=== PATIENT | female | born 1965 | race Caucasian/White ===

== ENCOUNTER 2018-08-01 16:56 | Outpatient (REF) | payer OTHER, SELFPAY ==
--- NOTE | 2018-08-01 16:45 | PAPFT_PTH ---
PATIENT: Kailee Anaya LOC: [facility] U#:[id number] AGE/SX: 52/F ROOM: RE08/01/[address]: Dmitry Guerra MD : 1965 BED: DIS: 08/01/2018 SPEC #: [id number] RECD: 08/04/18 13:18 STATUS: ADDY REQ #: [id number] DEBRA: 08/01/18 16:[address]: Dmitry Guerra DEPT: [facility] Cytology RECD BY: Dali Haynes Tissues: 1 - CX/ENDOCX FOR PAP SMEARS Procedures: PAP THIN PREP/UVM Screening HPV DNA PROBE Comments: [id number]
== END 2018-08-01 17:16 ==
LOC: LBN 16:56
PROVIDERS: PCP Family Medicine; Visit Provider Family Medicine
DX: Z12.4 Encounter for screening for malignant neoplasm of cervix (principal); Z11.51 Encounter for screening for human papillomavirus (HPV)
CPT/HCPCS: 88142; 87624

== ENCOUNTER 2018-08-04 15:11 | Outpatient (CLI) | payer OTHER, SELFPAY ==
--- NOTE | 2018-08-04 16:41 | DI.MAMMO_ITS ---
SYMPTOMS/DIAGNOSIS: SCREENING, WELL ADULT BILATERAL SCREENING MAMMOGRAM: Mammograms were interpreted according to the usual protocol including computer analysis with CAD system, tomosynthesis and C view imaging. Comparison is made with exams from 2012 through 2016. The breasts are composed of scattered fibroglandular densities, breast density category B. No suspicious masses or suspicious microcalcifications are seen. There has been no significant change. IMPRESSION: Category 1B, negative mammogram. Yearly screening mammography is recommended. [facility] ASSESSMENT OF FINDINGS: Negative. Category 1. Patient will receive a letter notifying them of these results. BI-RADS category B. There are scattered areas of fibroglandular density.
== END 2018-08-04 15:31 ==
PROVIDERS: PCP Family Medicine; Visit Provider Family Medicine
DX: Z12.31 Encounter for screening mammogram for malignant neoplasm of breast (principal)
CPT/HCPCS: 77063; 77067

== ENCOUNTER 2018-08-11 15:42 | Observation (INO) | payer OTHER, SELFPAY ==
[2018-08-11] VITALS (34 sets, daily range): BP systolic 65–162; BP diastolic 31–94; PULSE 59–91; RESP 12–32; TEMP 36.3–37.6; O2SAT 94–100
[2018-08-11] MEDS: Lactated Ringers 1,000 ML 80 ML IV ×3 (09:41→14:09)
--- NOTE | 2018-08-11 12:33 | W.PM.DSUDISC ---
Discharge Plan Disposition Patient Disposition: HOME Condition: Good Discharge Details Reason For Visit: (L) TROCHANTERIC BURSITIS Attending Provider: Eric Melchor Primary Care Provider: Dmitry Guerra Home Meds and New Rx's Prescriptions: New ibuprofen 800 mg tablet 800 mg PO TID Qty: 30 RF: 0 oxycodone-acetaminophen [Percocet] 5-325 mg tablet 1 tab PO Q6H PRN (Reason: pain) Qty: 20 RF: 0 Continue duloxetine 30 mg capsule,delayed release(DR/EC) 30 mg PO DAILY Qty: 90 RF: 3 metoprolol succinate 25 mg tablet extended release 24 hr 25 mg PO DAILY Qty: 90 RF: 3 omeprazole 40 mg capsule,delayed release(DR/EC) 40 mg PO DAILY Qty: 90 RF: 3 clotrimazole-betamethasone 1-0.05 % cream 1 applic TP BID Qty: 45 RF: 1 Discontinued ibuprofen 800 mg tablet 800 mg PO TID PRN RF: 0 Discharge Instructions Additional Instructions: Crutches to walk. WB as tolerated to L leg. Walk as much as your discomfort allows. Ice to lateral L hip continuously until discharge. At home, apply ice to incision 4 times/day for 1 hour each time. May remove dressings to shower after 72 hours. After showering, pat adamaris dry and cover with light gauze dressing so the adamaris don't catch on pants. Follow up in 's office in 2 weeks. Take ibuprofen 3 times/day as prescribed. Take oxycodone for breakthrough pain. Equipment/Supplies: Partial Weight Bearing Crutches Activity:: Activity as Tolerated Remove Dressings/Wound Care:: 72 hours Shower/Bathe:: 72 hours Diet:: regular Discharge Orders Discharge Orders: Discharge Order (Routine); Ordered 08/11/18 Ordered By: Eric Melchor DS: Diagnosis Discharge Diagnosis (1) Trochanteric bursitis, left hip: Status: Acute
[2018-08-11] MEDS: fentaNYL 100 MCG/2 ML VIAL IVP (13:42)
[2018-08-11] MEDS: HYDROmorphone 2 MG/ML VIAL IVP (13:51)
--- NOTE | 2018-08-11 14:18 | DI.RAD_ITS ---
SYMPTOMS/DIAGNOSIS: CHEST PAIN, SHORTNESS OF BREATH PORTABLE AP CHEST: Comparison 03/27/16. The heart size is mildly enlarged. The pulmonary vasculature is within normal limits. No consolidating infiltrates, effusions or pneumothoraces are identified. Degenerative changes are seen in the spine. IMPRESSION: No acute pulmonary process.
[2018-08-11 14:48] LABS: Troponin I < 0.02 ng/mL (0.00-0.06)
[2018-08-11 14:50] LABS: NT-proBNP 74 pg/mL
--- NOTE | 2018-08-11 15:39 | ROE_ITS ---
DATE OF PROCEDURE: August 11, 2018 PREOPERATIVE DIAGNOSIS: Chronic left trochanteric bursitis. POSTOPERATIVE DIAGNOSIS: Same. PROCEDURE: Tenotomy of the iliotibial band on the left and excision of trochanteric bursa on the lef t. ANESTHESIA: General. SURGEON: Eric Melchor M.D. PAD CUTTER: Halle Pacheco INDICATIONS: This is a 52-year-old white female with chronic left trochanteric bursitis for over mitch e months. This has not responded to the full gambit of conservative treatment including ice, anti-in flammatory medications and multiple steroid injections. She was also given a course of oral steroids without benefit. Because of the continued pain unresponsive to conservative treatment, surgery was recommended to alleviate the pain. Excision of the trochanteric bursa and tenotomy of the iliotibial band was advised to alleviate her pain. The risks and complications of the procedure were explained to the patient in detail preoperatively. PROCEDURE: The patient was taken to the operating room on 08/11/18. She was placed supine on the ope rating table and a general anesthetic was administered. She was turned to the left lateral position on the operating table and this position was maintained with a pneumatic beanbag. The left hip was t hen prepped and draped free in the usual sterile fashion. A longitudinal incision was made approximately 5 to 6 inches in length beginning just proximal to the tip of the greater trochanter. The incision was carried down to the subcu to the iliotibial band. The iliotibial band was longitudinally incised in the midline. I then palpated for the part of the I T band that was the tightest against the greater trochanter with the hip adducted. Once I determined by digital palpation the point where the tendon was impinging on the trochanter, I performed a trans verse tenotomy. At this point the trochanteric bursa was clearly visualized and the hypertrophic bur sa was excised with sharp dissection. The wound was irrigated with saline solution and hemostasis wa s obtained with electrocautery. The wound margins were then infiltrated with 0.5% Marcaine with an e pinephrine solution. I approximated the longitudinal incision in the iliotibial band only using inte rrupted [id number]-[id number] sutures of #1 Vicryl suture material. The transverse tenotomy was left open. The subcu was approximated with interrupted 2-0 Vicryl sutures. The skin edges were approximated w ith skin adamaris. Sterile dressings were applied of Xeroform gauze, sterile gauze 4x4's, ABD pads an d then taped with foam elastic tape for a light pressure dressing. The patient tolerated the procedu re well. Her anesthesia was reversed without complication. Blood loss was 25 cc's. She was dischar ged to the recovery room in good condition. She was slow coming out of anesthesia and was experiencing some trouble with breathing. This was tho roughly evaluated by the nurse gray mixing operator and no obvious reason was determined. The studies all wer e normal. The patient's breathing improved and it was felt that she would be safe to go home. She was later discharged home from the Day Surgery Unit when fully recovered. She was given instruct ions to use crutches to walk, weight-bearing as tolerated to the left leg. She is to keep the dressi ngs dry and intact for 72 hours. After 72 hours she may remove her dressings, shower and get her inc ision wet. After showering she is to pat the adamaris dry and to cover the adamaris with a light gauze dressing so they don't rub on her pants. She was given a prescription for pain of Percocet 5/325 on e tablet every six hours as needed for breakthrough pain, and a prescription for pain and inflammatio n of ibuprofen 800 mg p.o. t.i.d. for ten days. She will follow-up in my office in two weeks.
--- NOTE | 2018-08-11 16:13 | PDOC.ANES ---
This patient had General anesthesia today and throughout intraoperative course required large amounts of vasopressor therapy with minimal effect. Pt. was received by PACU at 1314 and was awake and conversive. Despite this, her hypotension remained. She was given a 80mcg IV phenylephrine bolus at 1312 and 1317 with some response and then started on a phenylephrine drip with rate mostly between 40-80mcg/min. She had received adequate crystalloid at this point, despite continued pressor requirement. She also complained of SOB/Air hunger with increased RR into high 20's, despite SpO2 100%. Her lung sounds were clear bilaterally without stridor and no increased work of breathing noted, other than rate. At around 1330, she complained of chest pressure 5/10 radiating to right arm without diaphoresis or nausea, but did continue to feel SOB.ECG, Troponin, BNP, and AP Chest film ordered. Lab results were normal, Chest film results normal with mildly enlarged heart. At the time of the results (around 1415), the chest pressure complaint and SOB did resolve per patient. At this time, patient did share that when she is cleaning at home, she must take multiple breaks since she just feels awful, although at this time she does deny any specific symptoms with these episodes. Discussed with surgeon who agrees pt. will be admitted for observation on telemetry and if next troponin at 1815 is negative, then she will be discharged home. Patient advised if negative, to follow up with primary care and discuss intraoperative hypotension, vague symptoms while doing housework, as well as episode of chest pain post operatively in order to assess need for further cardiovascular workup. Patient understand and agrees to see PCP in near future (less than 30 days) and call 911 if chest pressure returns. At 1628, patient has been off all vasopressor therapy with no complaints and well appearing and expresses her wish to go home after negative troponin result at 1815.
--- NOTE | 2018-08-11 16:18 | ANES_ITS ---
This patient had General anesthesia today and throughout intraoperative course required large amounts of vasopressor therapy with minimal effect. Pt. was received by PACU at 1314 and was awake and conversive. Despite this, her hypotension remained. She was given a 80mcg IV phenylephrine bolus at 1312 and 1317 with some response and then started on a phenylephrine drip with rate mostly between 40-80mcg/min. She had received adequate crystalloid at this point , despite continued pressor requirement. She also complained of SOB/Air hunger with increased RR into high 20's, despite SpO2 100%. Her lung sounds were clear bilaterally without stridor and no increased work of breathing noted, other than rate. At around 1330, she complained of chest pressure 5/10 radiating to right arm without diaphoresis or nausea, but did continue to feel SOB.ECG, Troponin, BNP, and AP Chest film ordered. Lab results were normal, Chest film results normal with mildly enlarged heart. At the time of the results (around 1415), the chest pressure complaint and SOB did resolve per patient. At this time, patient did share that when she is cleaning at home, she must take multiple breaks since she just feels awful, although at this time she does deny any specific symptoms with these episodes. Discussed with surgeon who agrees pt. will be admitted for observation on telemetry and if next troponin at 1815 is negative, then she will be discharged home. Patient advised if negative, to follow up with primary care and discuss intraoperative hypotension , vague symptoms while doing housework, as well as episode of chest pain post operatively in order to assess need for further cardiovascular workup. Patient understand and agrees to see PCP in near future (less than 30 days) and call 911 if chest pressure returns. At 1628, patient has been off all vasopressor therapy with no complaints and well appearing and expresses her wish to go home after negative troponin result at 1815.
[2018-08-11 18:55] LABS: Troponin I < 0.02 ng/mL (0.00-0.06)
== END 2018-08-11 19:30 | disposition home or self-care (01) ==
LOC: ICU 17:08
PROVIDERS: Nurse Anesthetist, Certified Registered; Admitting Provider Orthopaedic Surgery; PCP Family Medicine; Visit Provider Orthopaedic Surgery
PROC: 0MTM0ZZ Resection of Left Hip Bursa and Ligament, Open Approach (ICD-10-PCS; CPT 27062; principal; 2018-08-11 10:30)
PROC: 0MTM0ZZ Resection of Left Hip Bursa and Ligament, Open Approach (ICD-10-PCS; CPT 27062; 2018-08-11 10:30)
DX: M70.62 Trochanteric bursitis, left hip (principal); I95.81 Postprocedural hypotension; R06.02 Shortness of breath; R07.89 Other chest pain
CPT/HCPCS: 27062; 27305; 36415; 71045; 83880; 84484; 93005; 93010; G0378; J0131; J0690; J1100; J1885; J2250; J2405; J3010

== ENCOUNTER 2018-09-09 13:57 | Outpatient (CLI) | payer OTHER, SELFPAY ==
[2018-09-09 15:29] LABS: NT-proBNP 204 pg/mL
== END 2018-09-09 14:17 ==
PROVIDERS: PCP Family Medicine; Visit Provider Family Medicine
DX: R06.02 Shortness of breath (principal)
CPT/HCPCS: 36415; 83880

== ENCOUNTER 2018-09-17 01:25 | Outpatient (CLI) | payer OTHER, SELFPAY ==
--- NOTE | 2018-09-17 07:40 | MERGE_ITS ---
*[facility]* *[facility]* [address] [place] [address] Date of study: 09/17/2018 Transthoracic Echocardiography M-mode, complete 2D, complete spectral Doppler, and color Doppler *STUDY CONCLUSIONS* Summary: 1. Left ventricle: The cavity size was normal. Wall thickness was normal. Systolic function was normal. The estimated ejection fraction was 60-65%. Wall motion was normal; there were no regional wall motion abnormalities. Diastolic parameters were normal. 2. Right ventricle: The cavity size was normal. Wall thickness was normal. Systolic function was normal. The tricuspid jet envelope definition is inadequate for estimation of RV systolic pressure. There were no indirect findings (abnormal RV volume or geometry, altered pulmonary flow velocity profile, or leftward septal displacement) which would suggest moderate or severe pulmonary hypertension. *PATIENT PRESENTATION* Height: 160cm ((63in) ) S/D Pressure: 120 / 65 Weight: 98.4kg ((216.5lb) ) BSA: 2.14m^2 Test start time: 07:50 AM. Test stop time: 08:40 AM. PERFORMING Unknown ORDERING Dmitry Guerra REFERRING Dmitry Guerra PERFORMING [facility] CRITICAL CARE CLINICAL NURSE SPECIALIST RT Hitesh Hernandez)(CLEM) ASHWIN *PROCEDURE DATA* Procedure information: The patient was identified by two identifiers. This study was interpreted by [facility]. Pertinent images and digital data are archived for permanent storage and are available for subsequent review. No prior study was available for comparison. Study status: Routine. Transthoracic echocardiography. M-mode, complete 2D, complete spectral Doppler, and color Doppler. A Transthoracic Echocardiogram was performed. Scanning was performed from the parasternal, apical, subcostal, and suprasternal notch acoustic windows. Images were obtained using an [id number] cardiac ultrasound machine. Study completion: The patient tolerated the procedure well. There were no complications. History: PMH: SOB weight gain. *CARDIAC ANATOMY* Left ventricle: The cavity size was normal. Wall thickness was normal. Systolic function was normal. The estimated ejection fraction was 60-65%. Wall motion was normal; there were no regional wall motion abnormalities. Diastolic parameters were normal. Aortic valve: Trileaflet; normal thickness leaflets. Mobility was not restricted. Doppler: Transvalvular velocity was within the normal range. There was no stenosis. There was trivial regurgitation. VTI ratio of LVOT to aortic valve: 0.71. Valve area (VTI): 1.9cm^2. Indexed valve area (VTI): 0.9cm^2/m^2. Peak velocity ratio of LVOT to aortic valve: 0.6. Valve area (Vmax): 1.6cm^2. Indexed valve area (Vmax): 0.8cm^2/m^2. Mean velocity ratio of LVOT to aortic valve: 0.65. Valve area (Vmean): 1.7cm^2. Indexed valve area (Vmean): 0.8cm^2/m^2. Mean gradient (S): 9.2mm Hg. Peak gradient (S): 18.4mm Hg. Aorta: Aortic root: The aortic root was normal in size. Ascending aorta: The ascending aorta was normal in size. Mitral valve: Structurally normal valve. Mobility was not restricted. Doppler: Transvalvular velocity was within the normal range. There was no evidence for stenosis. There was trivial regurgitation. Valve area by pressure half-time: 3.7cm^2. Indexed valve area by pressure half-time: 1.7cm^2/m^2. Peak gradient (D): 4.4mm Hg. Left atrium: The atrium was normal in size. Right ventricle: The cavity size was normal. Wall thickness was normal. Systolic function was normal. The tricuspid jet envelope definition is inadequate for estimation of RV systolic pressure. There were no indirect findings (abnormal RV volume or geometry, altered pulmonary flow velocity profile, or leftward septal displacement) which would suggest moderate or severe pulmonary hypertension. Pulmonic valve: Doppler: Transvalvular velocity was within the normal range. There was no evidence for stenosis. There was no significant regurgitation. Peak gradient (S): 8mm Hg. Tricuspid valve: Structurally normal valve. Doppler: Transvalvular velocity was within the normal range. There was no evidence for stenosis. There was no significant regurgitation. Pulmonary artery: Systolic pressure could not be accurately estimated. Right atrium: The atrium was normal in size. Pericardium: There was no pericardial effusion. Systemic veins: Inferior vena cava: Well visualized. The vessel was patent and normal in size. The respirophasic diameter changes were in the normal range (greater than or equal to 50%). Baseline ECG: Normal sinus rhythm. Measurements Left ventricle Value Reference LV ID, ED, PLAX 4.0 cm 3.5 - 6.0 LV ID, ES, PLAX 2.7 cm 2.1 - 4.0 LV PW thickness, ED, PLAX 1.0 cm LV end-diastolic volume, 1-p A2C 82 ml LV ejection fraction, 1-p A2C 61 % LV end-diastolic volume, 1-p A4C 72 ml LV ejection fraction, 1-p A4C 57 % LV e', lateral 0.133 m/sec LV E/e', lateral 8 LV e', medial 0.105 m/sec LV E/e', medial 10 LV e', average 0.119 m/sec LV E/e', average 9 Ventricular septum Value Reference IVS thickness, ED, PLAX 1.1 cm LVOT Value Reference LVOT ID, A-P 1.8 cm LVOT area 2.7 cm^2 LVOT peak velocity, S 1.3 m/sec LVOT mean velocity, S 0.93 m/sec LVOT VTI, S 28.2 cm LVOT peak gradient, S 6.7 mm Hg LVOT mean gradient, S 3.9 mm Hg Stroke volume (SV), LVOT DP 75 ml Stroke index (SV/bsa), LVOT DP 35 ml/m^2 Aortic valve Value Reference Aortic valve peak velocity, S 2.1 m/sec Aortic valve mean velocity, S 1.43 m/sec Aortic valve VTI, S 40.0 cm Aortic mean gradient, S 9.2 mm Hg Aortic peak gradient, S 18.4 mm Hg VTI ratio, LVOT/AV 0.71 Aortic valve area, VTI 1.9 cm^2 Velocity ratio, peak, LVOT/AV 0.6 Aortic valve area, peak velocity 1.6 cm^2 Velocity ratio, mean, LVOT/AV 0.65 Aortic valve area, mean velocity 1.7 cm^2 Aortic valve area/bsa, mean velocity 0.8 cm^2/m^2 Aorta Value Reference Aortic root ID, ED 2.4 cm Ascending aorta ID, A-P, S 2.9 cm RVOT Value Reference RVOT VTI, S 16.4 cm Left atrium Value Reference LA ID, A-P, ES 3.1 cm LA ID/bsa, A-P 1.5 cm/m^2 <=2.2 LA area, ES, A4C 16.3 cm^2 8.8 - 23.4 LA area, ES, A2C 15 cm^2 LA volume/bsa, ES, 1-p A4C 21 ml/m^2 LA volume, ES, 2-p 41 ml LA volume/bsa, ES, 2-p 19 ml/m^2 LA/aortic root ratio 1.29 Mitral valve Value Reference Mitral E-wave peak velocity 1.05 m/sec Mitral A-wave peak velocity 0.87 m/sec Mitral deceleration time 208 ms 150 - 230 Mitral pressure half-time 60 ms Mitral peak gradient, D 4.4 mm Hg Mitral E/A ratio, peak 1.2 Mitral valve area, PHT, DP 3.7 cm^2 Pulmonary veins Value Reference Pulmonary vein peak velocity, S 0.55 m/sec Pulmonary vein peak velocity, D 0.4 m/sec Pulmonary vein velocity ratio, peak, 1.36 S/D Pulmonary vein A-wave reversal peak 0.31 m/sec velocity Tricuspid valve Value Reference Tricuspid regurg peak velocity 2.9 m/sec Tricuspid peak RV-RA gradient 33.7 mm Hg Right atrium Value Reference RA area, ES, A4C 12.3 cm^2 8.3 - 19.5 Pulmonic valve Value Reference Pulmonic peak gradient, S 8 mm Hg Legend: (L) and (H) kalpesh values outside specified reference range. I have personally reviewed the images and have reviewed and edited the reported findings. Electronically signed by Esvin Frye 09/17/2018 13:05
== END 2018-09-17 01:45 ==
PROVIDERS: PCP Family Medicine; Visit Provider Family Medicine
DX: R06.02 Shortness of breath (principal); R63.5 Abnormal weight gain
CPT/HCPCS: 93306

== ENCOUNTER 2018-09-24 15:44 | Outpatient (REF) | payer OTHER, SELFPAY ==
--- NOTE | 2018-09-24 14:30 | SKI_PTH ---
PATIENT: Kailee Anaya LOC: [facility] U#:[id number] AGE/SX: 52/F ROOM: RE09/24/[address]: Dmitry Guerra MD : 1965 BED: DIS: 09/24/2018 SPEC #: [id number] RECD: 09/25/18 12:30 STATUS: ADDY REQ #: [id number] DEBRA: 09/24/18 14:[address]: Dmitry Guerra DEPT: Surgical Specimen RECD BY: Dali Haynes Tissues: 1 - SKIN BIOPSY(SHAVE/PUNCH) Procedures: SKIN LEVEL 4 Comments: [id number]
== END 2018-09-24 16:04 ==
LOC: LBN 15:44
PROVIDERS: PCP Family Medicine; Visit Provider Family Medicine
DX: L82.1 Other seborrheic keratosis (principal)
CPT/HCPCS: 88305

== ENCOUNTER 2018-10-06 00:17 | Outpatient (CLI) | payer OTHER, SELFPAY ==
--- NOTE | 2018-10-06 06:46 | MERGEMPI_ITS ---
*[facility]* *[facility]* [address] [place] [address] Myocardial Perfusion Imaging - SPECT Mesfin protocol Date of study: 10/06/2018 *PATIENT PRESENTATION* Height: 157.5cm (62in) Blood Pressure: Weight: 99.1kg (218lb) BSA: 2.14m^2 Referring physician: Dominguez Pena MD Ordering physician: Dmitry Guerra Impressions: Normal perfusion by Tc99m Sestamibi Imaging. Summary: 1. Myocardial perfusion imaging: No myocardial perfusion defects noted. 2. The calculated left ventricular ejection fraction after stress: 80%. No left ventricular regional motion abnormality. Indication: 786.05. History: REASON FOR VISIT: DYSPNEA ON EXERTION. 1 EPISODE OF CHEST PAIN IN 2017 AFTER WAKING UP FROM SURGERY. NO CHEST PAINS SINCE. Risk factors: Family history of coronary artery disease. Hypertension. Obesity. Dyslipidemia. Cholesterol: 221mg/dl. HDL: 62mg/dl. LDL: 136mg/dl. Triglycerides: 132mg/dl. ALLERGIES: HYDROCODONE. CODEINE. MEDICATIONS: OMEPRAZOLE 40 MG DAILY. METOPROLOL SUCCINATE ER 50 MG DAILY. IBUPROFEN 800 MG TID. DULOXETINE 30 MG DAILY. CLOTRIMAZOLE-BETAMETHASONE TOPICAL CREAM BID. Imaging Technique: Protocol: Mesfin protocol. Acquisition: Gated SPECT; 1 day - rest/stress. The patient was imaged in the supine position. Attenuation correction used. Isotope administration: - Rest. Tc[99m]-sestamibi. Dose: 10.3mCi. Injection time: 08:15 AM. Injection to stress time: 00:45. - Stress. Tc[99m]-sestamibi. Dose: 32.2mCi. Injection time: 09:55 AM. 1-2 min before end of exercise Baseline ECG: SINUS RHYTHM. HR 79 BPM. T-WAVES FLAT IN V3, V4, V5 & V6. Stress protocol: + +---+ + !Stage !HR !BP (mmHg) ! + +---+ + !Baseline supine !79 !148/72 (97) ! + +---+ + !Baseline standing !101!142/84 (103)! + +---+ + !Stage I; 1.7mph, 10degrees; 3 min!167!202/98 (133)! + +---+ + !Peak stress !169! ! + +---+ + !Recovery; 3 min !101!160/82 (108)! + +---+ + !Recovery; 6 min !102!134/86 (102)! + +---+ + !Recovery; 9 min !103!122/82 (95) ! + +---+ + !Recovery; 12 min !99 ! ! + +---+ + * Stress results: Maximal heart rate during stress was 169bpm (101% of maximal predicted heart rate). The maximal predicted heart rate was 168bpm. The rate-pressure product for the peak heart rate and blood pressure was 00926wo Hg/min. Stress ECG: TREADMILL EXERCISE PORTION OF STRESS TEST ENDED IN 2 MINUTES & 42 SECONDS BECAUSE OF PATIENT FATIGUE NORMAL HEART RATE AND BLOOD PRESSURE RESPONSE TO EXERCISE MAX HR = 169 % OF TARGET = 100 NO ECTOPY APPROXIMATE METS ACHIEVED = 4.64 5/10 CHEST TIGHTNESS DURING PEAK EXERCISE, LASTING A FEW SECONDS, SUBSIDED WHEN TREADMILL STOPPED. NO SIGNIFICANT ST SEGMENT CHANGES MODERATELY DIMINISHED FUNCTIONAL CAPACITY FOR EXERCISE. Myocardial perfusion: Imaging information: gated. No myocardial perfusion defects noted. Ventricular Function (Wall Motion): The calculated left ventricular ejection fraction after stress: 80%. No left ventricular regional motion abnormality. Study data: Dominguez Pena MD supervised and was readily available during the procedure. This study was interpreted by [facility]. Study status: Routine. Consent: The risks, benefits, and alternatives to the procedure were explained to the patient and informed consent was obtained. Procedure: Initial setup. A baseline ECG was recorded. Surface ECG leads and manual cuff blood pressure measurements were monitored. Heart sounds: Normal. Lung sounds: Normal. Treadmill exercise testing was performed using the Mesfin protocol. Study completion: All catheters inserted during the procedure were removed. The patient tolerated the procedure well and was discharged from the lab. Discharge: The patient left the laboratory in stable condition. Birthdate: Patient birthdate: 1965. Sex: Gender: female. Study date: Study date: 10/06/2018. Study time: 06:46 AM. Electronically signed by Dominguez Pena MD 10/06/2018 17:35
== END 2018-10-06 00:37 ==
PROVIDERS: PCP Family Medicine; Visit Provider Family Medicine
DX: R06.09 Other forms of dyspnea (principal); R07.89 Other chest pain
CPT/HCPCS: 78452; 93017

== ENCOUNTER 2018-11-24 12:27 | Outpatient (REF) | payer OTHER, SELFPAY | END 2018-11-24 12:47 | LOC: LBN 12:27 | PROVIDERS: PCP Family Medicine | DX: J11.1 Influenza due to unidentified influenza virus with other respiratory manifestations (principal) | CPT/HCPCS: 87449 ==

== ENCOUNTER 2018-11-26 17:57 | Emergency (ER) | payer OTHER, SELFPAY ==
[2018-11-26] VITALS (16 sets, daily range): BP systolic 118–143; BP diastolic 48–73; PULSE 89–129; RESP 17–24; TEMP 36–37; O2SAT 97–99
--- NOTE | 2018-11-26 18:13 | ED.GENADUL_ITS ---
Discharge Plan Disposition Patient Disposition: STILL A PATIENT Condition: Good Discharge Details Chief Complaint: Nausea/Vomit/Diar Clinical Impression: Diverticulitis, Acute hypokalemia, Hypomagnesemia, Vomiting, Enteritis Primary Care Provider: Dmitry Guerra ED Provider: Axel Gaffney Home Meds and New Rx's Prescriptions: New potassium chloride 20 mEq tablet extended release 20 meq PO DAILY Qty: 7 RF: 0 metoclopramide HCl 5 mg tablet 5 mg PO PRN PRN (Reason: nausea and vomiting) Qty: 7 RF: 0 metronidazole [Flagyl] 500 mg tablet 500 mg PO TID 7 Days Qty: 21 RF: 0 ciprofloxacin HCl 500 mg tablet 500 mg PO BID 7 Days Qty: 14 RF: 0 No Action duloxetine 30 mg capsule,delayed release(DR/EC) 30 mg PO DAILY Qty: 90 RF: 3 omeprazole 40 mg capsule,delayed release(DR/EC) 40 mg PO DAILY Qty: 90 RF: 3 clotrimazole-betamethasone 1-0.05 % cream 1 applic TP BID Qty: 45 RF: 1 metoprolol succinate 50 mg tablet extended release 24 hr 50 mg PO DAILY Qty: 90 RF: 3 Discharge Instructions Instructions: Hypokalemia (ED), Acute Nausea and Vomiting (ED) Additional Instructions: Please take the medications as directed. Please consider holding your duloxetine as it may interact with Cipro. Please drink 10-12 cups of water per day. If you notice any worsening of your symptoms, or any new symptoms such as vomiting, diarrhea, fever, chills, shortness of breath, chest pain, numbness, weakness, or fainting , please return immediately to the emergency department for reevaluation. Please follow up with your primary care provider as soon as possible for reassessment and reevaluation. As always, it was a pleasure participating in your medical care today. Stand Alone Forms: Work Release Referrals: Dmitry Guerra [Primary Care Provider] - Medical Decision Making <Eric Bell MD - Last Filed: 11/26/18 19:45> 53-year-old female presents from home complaining of 1 week of nausea, vomiting, watery diarrhea that has not been black or bloody. She attributes this to sick contacts with her family over the [place] holidays. She was seen in clinic and had a negative flu swab. She has been attempting symptomatic management at home, presents emerged from today due to ongoing vomiting. She is afebrile but tachycardic with a pulse of 129. IV placed, labs obtained, patient given fluid bolus and antiemetic. Given the tenderness of her abdomen I do feel it is prudent to obtain a CT of the abdomen to rule out diverticulitis, colitis, ileus or obstruction. Labs reveal a white blood cell count of 3.9, potassium of 2.7 likely due to GI losses, mag 1.6 and mild anion gap. She has stopped vomiting with initiation of fluids and electrolyte replacement is ongoing. Will sign out to Dr. Gaffney pending results of CT images. Please see his note regarding final impression Lab Data Lab results reviewed: Yes I reviewed the patient's lab results. Laboratory Results - last 24 hr 11/26/18 11/26/18 11/26/18 18:30 18:50 18:50 WBC 3.97 L RBC 4.83 Hgb 14.6 Hct 42.8 MCV 88.6 MCH 30.2 MCHC 34.1 RDW 12.6 Plt Count 335 MPV 10.8 Immature Gran % 0.0 Neutrophils % 54.4 Lymphocytes % 31.7 Monocytes % 11.8 Eosinophils % 1.3 Basophils % 0.8 Absolute Neutrophils 2.16 Absolute Lymphocytes 1.26 Absolute Monocytes 0.47 Absolute Eosinophils 0.05 Absolute Basophils 0.03 Sodium 142 Potassium 2.7 L* Chloride 103 Carbon Dioxide 27.8 Anion Gap 11.2 H BUN 7 Creatinine 1.01 Estimated GFR/1.73 m2 57.34 Glucose 101 H Calcium 8.5 Magnesium 1.6 L Total Bilirubin 0.4 AST 29 ALT 46 Alkaline Phosphatase 68 Total Protein 7.2 Albumin 3.7 Lipase 82 Urine Color Yellow Urine Clarity Cloudy Urine pH 5.5 Ur Specific [place] >= 1.030 H Urine Protein 100 H Urine Ketones 15 H Urine Blood Negative Urine Nitrite Negative Urine Bilirubin Moderate H Urine Urobilinogen 1.0 H Ur Leukocyte Esterase Negative Urine RBC Negative Urine WBC 5-10 Ur Epithelial Cells Moderate Urine Crystals Negative Urine Bacteria Rare Urine Casts 0-2 hyaline Urine Mucus Trace Urine Other Ur Culture Indicated? No/sq. contamination Urine Glucose Negative <Axel Gaffney DO - Last Filed: 11/27/18 00:23> The case is signed out to be my my colleague Dr. Bell. Pending CT results at that time. CT results have returned and demonstrate evidence of very mild diverticulitis versus mild colitis. Repeat physical abdominal exam by myself demonstrates no significant or severe abdominal tenderness. Patient's potassium was notably low on initial assessment, she was given IV potassium to the previous provider. As well as magnesium. Repeat laboratory workup shows an upward trend of the potassium. Patient's heart rate has normalized and she is now in the 80s. Blood pressure remained stable. She is tolerated the p.o. fluid here. The improvement of her vital signs and current reassuring vital signs, upward trending potassium, and only mild diverticulitis certainly demonstrated clinical picture that would be appropriate for outpatient treatment. I did discuss this with the patient she is in favor of discharge over admission. I feel that this is reasonable. We will complete the patient's potassium here, give her prescription for home potassium. Start her on Cipro and Flagyl with an initial IV dose in the ED, and a prescription for home use. On reassessment the patient's medications are in, she is feeling much better. She has tolerated multiple cups of water p.o. without any difficulty. She is feeling good and requesting discharge home. I think that this is reasonable. We discussed red flags which to return, as well as a low threshold for return if she has any worsening of her symptoms. I have extensively reviewed the treatment plan and discharge instructions with the patient. I have addressed all patient concerns at this time. The patient was made aware of what symptoms to monitor for that would warrant a return to the emergency department. Discussed the plan with the patient, they demonstrate verbal understanding and agreement with our assessment and plan at this time. FINDINGS: Lower thorax: Patchy subpleural opacities, likely microatelectasis, less likely pneumonitis. Tiny hiatal hernia. ABDOMEN: Liver: No mass. Gallbladder and bile ducts: Cholecystectomy. Pancreas: No ductal dilation. No masses. Spleen: No splenomegaly or focal lesions. Adrenals: No mass. Kidneys and ureters: No hydronephrosis. No renal masses. Stomach and bowel: Benign appearing duodenal diverticulum. New circumferential wall thickening of the midsigmoid colon in the presence of numerous diverticula, however without significant paracolic edema. No focal pathology in the remainder of the colon. No focal pathology in the small bowel. Fluid filled loop of mid small bowel without pathologic dilation or wall thickening. Areas of sickle cell fat deposition in the colon are probably habitus related. Appendix: No evidence of appendicitis. PELVIS: Bladder: Unremarkable as visualized. Reproductive: Unremarkable as visualized. ABDOMEN and PELVIS: Intraperitoneal space: No fluid collections or free air. Bones/joints: Mild lumbar dextroscoliosis. Similar to prior. Degenerative changes in the spine. No acute fracture or subluxation. Soft tissues: Small fat-containing umbilical hernia. Vasculature: No abdominal aortic aneurysm. Lymph nodes: No significantly enlarged lymph nodes. IMPRESSION: 1. New circumferential wall thickening of the midsigmoid colon in the presence of numerous diverticula, however without significant paracolic edema. Question a mild diverticulitis, favored over colitis. 2. Incidental findings as described. Dictated and Authenticated by: Salina Hernandez MD. HPI <Eric Bell MD - Last Filed: 11/26/18 19:45> General Mode of arrival: ambulatory . Date/Time Provider Initiated Documentation: 11/26/18 17:58 . Limitations to Documentation: no limitations . Information obtained by: patient . History of Present Illness 53 year old F presents to the emergency department with the chief complaint of N/V/D over one weeks time, mild abd discomfort, described as moderate, Quality is described as dull, and is localized to the abdomen. Patient reports no radiation. Patient started experiencing this day(s) and it has been intermittent. No relieving factors improve symptom(s), No exacerbating factors reported . Patient notes fever/chills, loss of appetite, malaise and nausea/vomiting. Patient did receive the following treatments prior to arrival, none Related Data Home Medications Medication Instructions Recorded Confirmed clotrimazole-betamethasone 1 1 applic TP BID #45 gm 08/01/18 11/26/18 %-0.05 % topical cream duloxetine 30 mg capsule,delayed 30 mg PO DAILY #90 cap 08/01/18 11/26/18 release omeprazole 40 mg capsule,delayed 40 mg PO DAILY #90 cap 08/01/18 11/26/18 release metoprolol succinate ER 50 mg 50 mg PO DAILY #90 tab 10/14/18 11/26/18 tablet,extended release 24 hr ciprofloxacin HCl 500 mg PO BID 7 Days #14 tab 11/26/18 metoclopramide HCl 5 mg PO PRN PRN #7 tab 11/26/18 metronidazole [Flagyl] 500 mg PO TID 7 Days #21 tab 11/26/18 potassium chloride 20 meq PO DAILY #7 tab 11/26/18 Previous Rx's Medication Instructions Recorded clotrimazole-betamethasone 1 1 applic TP BID #45 gm 08/01/18 %-0.05 % topical cream duloxetine 30 mg capsule,delayed 30 mg PO DAILY #90 cap 08/01/18 release omeprazole 40 mg capsule,delayed 40 mg PO DAILY #90 cap 08/01/18 release metoprolol succinate ER 50 mg 50 mg PO DAILY #90 tab 10/14/18 tablet,extended release 24 hr ciprofloxacin HCl 500 mg PO BID 7 Days #14 tab 11/26/18 metoclopramide HCl 5 mg PO PRN PRN #7 tab 11/26/18 metronidazole [Flagyl] 500 mg PO TID 7 Days #21 tab 11/26/18 potassium chloride 20 meq PO DAILY #7 tab 11/26/18 Allergies Allergy/AdvReac Type Severity Reaction Status Date / Time hydrocodone AdvReac Intermediate NAUSEA Verified 11/26/18 18:04 codeine AdvReac Unknown NAUSEA Verified 11/26/18 18:04 General Stated Complaint: Nausea/Vomit/Diar CHERYL: 3 Review of Systems <Eric Bell MD - Last Filed: 11/26/18 19:45> Review of Systems 8 systems reviewed and otherwise negative PFSH <Eric Bell MD - Last Filed: 11/26/18 19:45> Medical History Essential hypertension GERD (gastroesophageal reflux disease) Lumbago with sciatica Surgical History Cholecystectomy Cystectomy, Mini Lap Ovarian EXCISION, CALCANEAL SPUR Excision, Lipoma (09/25/16) Family History Mother Essential hypertension Father Essential hypertension Stroke Bladder cancer Sister Essential hypertension FAMILY HISTORY Hemochromatosis Social History household members: none current occupational status: employed current occupation: DIST[employer] pets and animals: Yes pets and animals: dog(s) frequency: does not exercise Smoking/Tobacco Use Status: Never alcohol intake: never substance use type: does not use yane/yarsani: Cong[employer] special yane needs: No Exam <Eric Bell MD - Last Filed: 11/26/18 19:45> Narrative Exam Narrative: GEN: awake, alert, oriented 3. Pleasant, well groomed, interactive. HEAD: Normocephalic, atraumatic ENT: Mucous membranes moist, oropharynx unremarkable, External ear exam unremarkable EYES: PERRL, EOMI NECK: Full ROM, no SHIRIN, no menigismus CHEST/RESP: Nontender, clear to auscultation bilateral, no wheeze/rhonchi/rales CARDIOVASCULAR: Tachycardia, no murmur, rub mauro. 2+ Rad pulse bilateral ABDOMEN: Soft, minimal tenderness in the right lower quadrant, no mass. +Bowel sounds EXT: Full ROM, no edema, no rash Neuro: Grossly normal neurologic exam, conversant, interactive. Psych: Speech fluent, thoughts congruent, affect normal Course <Eric Bell MD - Last Filed: 11/26/18 19:45> Vital Signs Temperature 36.0 C L 11/26/18 18:00 Pulse 129 H 11/26/18 18:00 Respiratory Rate 20 11/26/18 18:00 Blood Pressure 143/73 H 11/26/18 18:00 Pulse Oximetry 97 11/26/18 18:00 Temperature 36.0 C L 11/26/18 18:00 Pulse 129 H 11/26/18 18:00 Respiratory Rate 20 11/26/18 18:00 Blood Pressure 143/73 H 11/26/18 18:00 Pulse Oximetry 97 11/26/18 18:00 Oxygen Delivery Method Room Air 11/26/18 18:00 Oxygen Flow Rate 0 11/26/18 18:00
[2018-11-26] MEDS: Ondansetron 4 MG/2 ML VIAL IVP (18:41)
[2018-11-26 18:44] LABS: Bilirubin Moderate (Negative); Blood Negative (Negative); Clarity Cloudy; Glucose Negative (Negative); Ketones 15 mg/dL (Negative); Leukocyte Esterase Negative (Negative); Nitrite Negative (Negative); Specific Gravity >= 1.030 (1.005-1.025); pH 5.5 (5-8)
[2018-11-26] MEDS: Normal Saline 1,000 ML 2000 ML IV (18:45)
[2018-11-26 18:55] LABS: Bacteria Rare HPF (Negative); Crystals Negative HPF (Negative); Epithelial Cells Moderate HPF (Negative); Mucus Trace (Negative); RBC Negative (0-2)
[2018-11-26 18:58] LABS: C & S Indicated? No/Sq. Contamination
[2018-11-26 18:59] LABS: Casts 0-2 Hyaline LPF (Negative)
[2018-11-26 19:05] LABS: Absolute Basophil Count 0.03 k/cumm (0.0-0.2); Absolute Eosinophil Count 0.05 k/cumm (0.0-0.7); Absolute Lymphocyte Count 1.26 k/cumm (1.2-3.4); Absolute Monocyte Count 0.47 k/cumm (0.11-0.7); Absolute Neutrophil Count 2.16 k/cumm (1.2-6.7); Basophils % 0.8; Eosinophils % 1.3; HCT 42.8 % (36.0-46.0); HGB 14.6 g/dL (12.0-15.5); Lymphocytes % 31.7; Mean Corp. HGB Concentration 34.1 g/dL (32.0-36.0); Mean Corpuscular Hemoglobin 30.2 pg (27.0-33.0); Mean Corpuscular Volume 88.6 fL (80-95); Mean Platelet Volume 10.8 fL (8.0-11.0); Monocytes % 11.8; Neutrophils % 54.4; Platelet Count 335 x1000/uL (130-400); RBC 4.83 m/cumm (4.00-5.20); RBC Distribution Width 12.6 % (11.7-14.6); White Blood Cell Count 3.97 k/cumm (4.4-10.8)
--- NOTE | 2018-11-26 19:07 | DI.CT_ITS ---
SYMPTOM/DIAGNOSIS: RLQ PAIN, VOMITING ABDOMEN AND PELVIC CT: Comparison is made with 02/05/12. There are small ground glass opacities in the lung bases, right greater than left. The liver is normal in size. No evidence of a hepatic mass. The portal and superior mesenteric veins are patent. The patient is status post cholecystectomy. No biliary ductal dilatation is seen. The pancreas and peripancreatic soft tissues are unremarkable as are the spleen and adrenal glands. The kidneys show normal and symmetric enhancement. No evidence of a solid renal mass or obstruction. The urinary bladder is intact. The reproductive organs are unremarkable. There is mild atherosclerosis of the abdominal aorta. No aneurysmal dilatation is seen. No significant abdominal or pelvic adenopathy, ascites or pneumoperitoneum is present. There is a small hiatal hernia. There is a small duodenal diverticulum present adjacent to the pancreatic head. There is diverticulosis of the colon. No pericolonic inflammatory change is seen. There is a question of mild thickening of the wall of the mid sigmoid colon. This may be due to under distension. Early inflammatory process cannot be excluded. No findings to suggest an acute appendicitis are present. The remainder of the bowel is unremarkable. There is a right convex scoliosis of the lumbar spine. Degenerative changes are present. IMPRESSION: Question of mild thickening of the wall of the mid sigmoid colon versus under distension. In the setting of multiple diverticula, mild early acute diverticulitis could not be excluded. Please correlate clinically.
[2018-11-26 19:14] LABS: ALT 46 U/L (12-78); AST 29 U/L (15-37); Albumin 3.7 g/dL (3.4-5.0); Alkaline Phosphatase 68 U/L (46-116); Anion Gap 11.2 mmol/L (3-11); BUN 7 mg/dL (7-18); Bilirubin, Total 0.4 mg/dL (0.2-1.0); CO2 27.8 mmol/L (21.0-32.0); CREATININE 1.01 mg/dL (0.55-1.02); Calcium 8.5 mg/dL (8.5-10.1); Chloride 103 mmol/L (98-107); Estimated GFR 57.34 (mL/min/1.73m2); Glucose 101 mg/dL (70-100); Lipase 82 U/L (73-393); Magnesium 1.6 mg/dL (1.8-2.4); Sodium 142 mmol/L (136-145); Total Protein 7.2 g/dL (6.4-8.2)
[2018-11-26 19:19] LABS: Potassium 2.7 mmol/L (3.5-5.1)
[2018-11-26] MEDS: MAGNESIUM SULFATE 2 GM/50 ML BAG IVPB (19:47)
[2018-11-26] MEDS: POTASSIUM CHLORIDE 20 MEQ/100 ML BAG 50 MEQ IVPB (19:47)
[2018-11-26] MEDS: Omnipaque 350 MG/ML 100 ML BTL IJ (20:01)
--- NOTE | 2018-11-26 20:20 | DI.VRAD_ITS ---
EXAM: CT Abdomen and Pelvis With Contrast EXAM DATE/TIME: 11/26/2018 7:08 PM CLINICAL HISTORY: 53 years old, female; Pain and signs and symptoms; Bloating and nausea and vomiting; Abdominal pain TECHNIQUE: Axial computed tomography images of the abdomen and pelvis with intravenous contrast. Coronal and sagittal reformatted images were created and reviewed. COMPARISON: CT ABD PELVIS WITH CONTRAST 02/05/2012 6:54 PM FINDINGS: Lower thorax: Patchy subpleural opacities, likely microatelectasis, less likely pneumonitis. Tiny hiatal hernia. ABDOMEN: Liver: No mass. Gallbladder and bile ducts: Cholecystectomy. Pancreas: No ductal dilation. No masses. Spleen: No splenomegaly or focal lesions. Adrenals: No mass. Kidneys and ureters: No hydronephrosis. No renal masses. Stomach and bowel: Benign appearing duodenal diverticulum. New circumferential wall thickening of the midsigmoid colon in the presence of numerous diverticula, however without significant paracolic edema. No focal pathology in the remainder of the colon. No focal pathology in the small bowel. Fluid filled loop of mid small bowel without pathologic dilation or wall thickening. Areas of sickle cell fat deposition in the colon are probably habitus related. Appendix: No evidence of appendicitis. PELVIS: Bladder: Unremarkable as visualized. Reproductive: Unremarkable as visualized. ABDOMEN and PELVIS: Intraperitoneal space: No fluid collections or free air. Bones/joints: Mild lumbar dextroscoliosis. Similar to prior. Degenerative changes in the spine. No acute fracture or subluxation. Soft tissues: Small fat-containing umbilical hernia. Vasculature: No abdominal aortic aneurysm. Lymph nodes: No significantly enlarged lymph nodes. IMPRESSION: 1. New circumferential wall thickening of the midsigmoid colon in the presence of numerous diverticula, however without significant paracolic edema. Question a mild diverticulitis, favored over colitis. 2. Incidental findings as described. Dictated and Authenticated by: Salina Hernandez MD. Ordering:HEATHER Reyes MD
[2018-11-26] MEDS: Normal Saline 1,000 ML 1000 ML IV ×2 (20:44→21:24)
[2018-11-26 20:58] LABS: Potassium 2.8 mmol/L (3.5-5.1)
[2018-11-26] MEDS: Ondansetron 4 MG/2 ML VIAL (21:50)
[2018-11-26] MEDS: CIPROFLOXACIN 400 MG/200 ML BAG 200 MG IVPB (22:07)
[2018-11-26] MEDS: MetroNIDAZOLE 500 MG/100 ML BAG 100 MG IVPB (23:15)
[2018-11-27 00:20] VITALS: BP 126/69; PULSE 81; TEMP 37; O2SAT 97
[2018-11-27 00:34] VITALS: BP 126/69; PULSE 81; TEMP 37; O2SAT 97
== END 2018-11-27 00:52 | disposition still patient (30) ==
PROVIDERS: Emergency Medicine; Emergency Provider Student in an Organized Health Care Education/Training Program; PCP Family Medicine
DX: R11.2 Nausea with vomiting, unspecified (principal); K57.32 Diverticulitis of large intestine without perforation or abscess without bleeding; K52.9 Noninfective gastroenteritis and colitis, unspecified; E87.6 Hypokalemia; E83.42 Hypomagnesemia; I10 Essential (primary) hypertension
CPT/HCPCS: 36415; 80053; 83690; 96361; 96365; 96366; 96367; 96368; 96375; 96376; 99285; 74177; 81003; 81015; 83735; 84132; 85025; 99284; J0744; J2405; J3480; J3490

== ENCOUNTER 2018-12-05 14:16 | Outpatient (CLI) | payer OTHER, SELFPAY ==
[2018-12-05 15:37] LABS: Anion Gap 11.1 mmol/L (3-11); CO2 20.9 mmol/L (21.0-32.0); Chloride 107 mmol/L (98-107); Potassium 4.5 mmol/L (3.5-5.1); Sodium 139 mmol/L (136-145)
== END 2018-12-05 14:36 ==
PROVIDERS: PCP Family Medicine; Visit Provider Family Medicine
DX: R42 Dizziness and giddiness (principal)
CPT/HCPCS: 36415; 80051

== ENCOUNTER 2019-03-22 17:37 | Emergency (ER) | payer OTHER, SELFPAY ==
[2019-03-22 17:40] VITALS: BP 100/78; PULSE 114; RESP 18; TEMP 36.7; O2SAT 99
--- NOTE | 2019-03-22 17:50 | DI.RAD_ITS ---
SYMPTOMS/DIAGNOSIS: COUGH, CONGESTION, SHORTNESS OF BREATH, UPPER RESPIRATORY INFECTION SYMPTOMS CHEST X-RAY, FRONTAL AND LATERAL VIEWS: Comparison is 08/11/18. The heart size is within normal limits. There do appear to be mild prominent interstitial markings in the perihilar regions bilaterally. No focal consolidating infiltrates, effusions or pneumothoraces are identified. Degenerative changes are seen in the spine. IMPRESSION: Mild interstitial prominence in the perihilar region. Infectious process cannot be excluded. Please correlate clinically.
[2019-03-22 17:53] VITALS: PULSE 114; RESP 18; RESP 7; O2SAT 99
[2019-03-22] MEDS: Albuterol/Ipratropium 3 ML UPD VIAL UPD (17:53)
--- NOTE | 2019-03-22 18:00 | ED.GENADUL_ITS ---
Discharge Plan Disposition Patient Disposition: HOME Discharge Details Chief Complaint: RespSymp Clinical Impression: Bronchitis Primary Care Provider: Dmitry Guerra ED Provider: Reuben Hurtado Home Meds and New Rx's Prescriptions: New dextromethorphan HBr 15 mg capsule 30 mg PO Q6H PRN (Reason: cough) 3 Days Qty: 20 RF: 0 No Action lisinopril 5 mg tablet 5 mg PO DAILY Qty: 90 RF: 3 ondansetron HCl 4 mg tablet 4 mg PO BID-TID PRN (Reason: nausea and vomiting) Qty: 12 RF: 0 duloxetine 30 mg capsule,delayed release(DR/EC) 30 mg PO DAILY Qty: 90 RF: 3 omeprazole 40 mg capsule,delayed release(DR/EC) 40 mg PO DAILY Qty: 90 RF: 3 clotrimazole-betamethasone 1-0.05 % cream 1 applic TP BID Qty: 45 RF: 1 polyethylene glycol 3350 17 gram/dose powder 238 g PO ONCE Qty: 238 RF: 0 bisacodyl [Dulcolax (bisacodyl)] 5 mg tablet,delayed release (DR/EC) 5 mg PO ONCE Qty: 4 RF: 0 metoprolol succinate 50 mg tablet extended release 24 hr 50 mg PO DAILY Qty: 90 RF: 3 Discharge Instructions Instructions: Acute Bronchitis (ED) Additional Instructions: Your chest x-ray today was negative for pneumonia. Symptoms are most likely that of bronchitis which is in itself typically viral. Supportive care with continued use of Tylenol is important. Ajrp-voj-qjotiau cough suppressants such as dextromethorphan 30 mg every 6 hours will help suppress cough. You were also given a inhaler with a spacer to use every 4-6 hours as needed. Should you develop worsening symptoms or shortness of breath, dizziness or vomiting you should be reevaluated in the emergency department or by your primary care provider Stand Alone Forms: Work Release Medical Decision Making Kailee is a very pleasant 53-year-old female presenting to the emergency department with the above chief complaint. She has URI symptoms associated with her cough. Room air saturation maintained in the upper 90. she does have a slight tachycardia however shows no outward signs of sepsis. Cough today seems to improve status post DuoNeb. Her flu was negative and chest x-ray demonstrates no focal infiltrate or evidence of pneumonia. Unfortunately she has allergies to codeine therefore recommend dextromethorphan for cough suppressant. Patient tolerating p.o. fluids and urinating frequently. No indication for IV fluids at this time. Patient educated on return precautions. She will follow-up with her primary care provider should symptoms persist. Patient given albuterol inhaler with spacer for bronchospasm. she is stable and ready for discharge at this time HPI General Date/Time Provider Initiated Documentation: 03/22/19 17:45 . HPI Narrative: Patient is a 53-year-old female with significant past medical history of JANNA, hypertension, and GERD who presents to the emergency department with cough and congestion over the last 5 days. She reports cough worse with lying flat. She describes nasal congestion and sore throat associated with her cough. No reported fevers. She is a non-smoker however is exposed to secondhand. Mild wheezing noted. She denies any dizziness or lightheadedness. She has been urinating frequently. She is able to tolerate p.o. liquids. No reported vomiting or diarrhea. Related Data Home Medications Medication Instructions Recorded Confirmed clotrimazole-betamethasone 1 1 applic TP BID #45 gm 08/01/18 03/22/19 %-0.05 % topical cream duloxetine 30 mg capsule,delayed 30 mg PO DAILY #90 cap 08/01/18 03/22/19 release omeprazole 40 mg capsule,delayed 40 mg PO DAILY #90 cap 08/01/18 03/22/19 release metoprolol succinate ER 50 mg 50 mg PO DAILY #90 tab 10/14/18 03/22/19 tablet,extended release 24 hr lisinopril 5 mg tablet 5 mg PO DAILY #90 tab 01/28/19 03/22/19 ondansetron HCl 4 mg tablet 4 mg PO BID-TID PRN #12 tab 02/06/19 03/22/19 bisacodyl 5 mg tablet,delayed 5 mg PO ONCE #4 tab 02/16/19 03/22/19 release polyethylene glycol 3350 17 238 g PO ONCE #238 gm 02/16/19 03/22/19 gram/dose oral powder dextromethorphan HBr 30 mg PO Q6H PRN 3 Days #20 cap 03/22/19 Previous Rx's Medication Instructions Recorded clotrimazole-betamethasone 1 1 applic TP BID #45 gm 08/01/18 %-0.05 % topical cream duloxetine 30 mg capsule,delayed 30 mg PO DAILY #90 cap 08/01/18 release omeprazole 40 mg capsule,delayed 40 mg PO DAILY #90 cap 08/01/18 release metoprolol succinate ER 50 mg 50 mg PO DAILY #90 tab 10/14/18 tablet,extended release 24 hr lisinopril 5 mg tablet 5 mg PO DAILY #90 tab 01/28/19 ondansetron HCl 4 mg tablet 4 mg PO BID-TID PRN #12 tab 02/06/19 bisacodyl 5 mg tablet,delayed 5 mg PO ONCE #4 tab 02/16/19 release polyethylene glycol 3350 17 238 g PO ONCE #238 gm 02/16/19 gram/dose oral powder dextromethorphan HBr 30 mg PO Q6H PRN 3 Days #20 cap 03/22/19 Allergies Allergy/AdvReac Type Severity Reaction Status Date / Time hydrocodone AdvReac Intermediate NAUSEA Verified 03/22/19 17:43 codeine AdvReac Unknown NAUSEA Verified 03/22/19 17:43 General Stated Complaint: RespSymp CHERYL: 4 Review of Systems Constitutional Reports body ache(s), Reports chills, Reports fatigue, Denies fever(s), Reports headache(s), Denies night sweats, Denies snoring, Reports weakness and Denies weight loss Eyes Denies eye discharge ENT Reports headache(s), Reports nasal congestion, Denies neck pain, Reports post nasal drip, Reports sinus pressure and Reports sore throat Cardiovascular Denies syncope, Denies rapid heart rate, Denies pedal edema, Denies light headedness and Denies dyspnea Respiratory Reports cough, Reports pain with cough, Denies dyspnea, Denies snoring, Denies stridor and Reports wheezing Gastrointestinal Denies diarrhea, Denies nausea and Denies vomiting Genitourinary Denies urinary frequency Musculoskeletal Reports myalgias, Denies muscle cramps and Denies neck pain Integumentary/Breasts Denies rash and Denies skin ulcer Neurologic Denies syncope, Reports headache(s), Denies focal weakness and Reports weakness Endocrine Reports fatigue Allergic/Immunologic Reports wheezing PFSH Medical History Yeast vaginitis (Acute) FERNANDEZ (dyspnea on exertion) (Chronic) Diverticulitis (Chronic) Lumbar disc herniation (Acute 02/26/17) Trochanteric bursitis, left hip (Acute) Chronic pain (Acute 04/03/17) BMI 36.0-36.9,adult (Acute 03/22/16) 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) Left lumbar radiculitis (Acute) Lumbosacral spondylosis without myelopathy (Acute) Foraminal stenosis of lumbar region (Acute) Fatigue (Acute) JANNA (obstructive sleep apnea) (Chronic) Essential hypertension GERD (gastroesophageal reflux disease) Lumbago with sciatica Surgical History Cholecystectomy Cystectomy, Mini Lap Ovarian EXCISION, CALCANEAL SPUR Excision, Lipoma (09/25/16) Family History Mother Essential hypertension Father Essential hypertension Stroke Bladder cancer Sister Essential hypertension FAMILY HISTORY Hemochromatosis Social History Smoking/Tobacco Use Status: Never Alcohol Intake: never Drug use: Never Substance use type: does not use Household members: none current occupation: [employer] Pets and animals: Yes Pets and animals: dog(s) What type of physical activity do you participate in: none Frequency: does not exercise Kay/Quaker: Denominational Special kay needs: No Do you feel safe in your relationship?: Yes Exam Const General: cooperative, comfortable and no acute distress Nutritional Appearance: average body habitus Orientation: alert and awake HENMT Head: normal to inspection Ears: hearing grossly normal bilaterally, external ears normal and TM's normal bilaterally General nose exam: external nose normal Face and sinus: normal facial exam and sinuses nontender Mouth: oral mucosae normal Teeth and gingiva: dentition normal Throat: posterior oropharynx abnormal erythema Eyes General: appearance normal, both eyes and all related structures Neck Neck: normal visual inspection, full ROM, no lymphadenopathy and no meningeal signs Chest Chest: normal inspection of the chest Resp Effort & Inspection: normal respiratory effort and able to speak in complete sentences Auscultation: wheezes expiratory wheezes Cardio Jugular venous pressure: no JVD Rate: tachycardic Rhythm: regular rhythm and abnormal rhythm Heart Sounds: S1 normal and S2 normal Pulses: normal peripheral pulses GI Inspection: normal to inspection Palpation: soft and no hepatosplenomegaly Back/Spine/Pelvis Back: no CVA tenderness Skin General skin exam: no rashes or lesions noted Course Vital Signs Temperature 36.7 C 03/22/19 17:40 Pulse 114 H 03/22/19 17:40 Respiratory Rate 18 03/22/19 17:40 Blood Pressure 100/78 03/22/19 17:40 Pulse Oximetry 99 03/22/19 17:40 Temperature 36.7 C 03/22/19 17:40 Temperature Source Skin 03/22/19 17:40 Pulse 114 H 03/22/19 17:40 Respiratory Rate 18 03/22/19 17:40 Respiratory Effort Non-Labored 03/22/19 17:42 Blood Pressure 100/78 03/22/19 17:40 Pulse Oximetry 99 03/22/19 17:40 Oxygen Delivery Method Room Air 03/22/19 17:40 Oxygen Flow Rate 0 03/22/19 17:40 Pain Level 7 03/22/19 17:40 Lab/Test Results Lab/Test Results: 03/22/19 17:53 Nasopharynx Influenza Types A,B Antigen - Pending
[2019-03-22 18:23] VITALS: PULSE 110; RESP 18; RESP 4; RESP 7; O2SAT 99
--- NOTE | 2019-03-22 18:47 | DI.VRAD_ITS ---
EXAM: XR Chest, 2 Views EXAM DATE/TIME: 03/22/2019 5:53 PM CLINICAL HISTORY: 53 years old, female; Signs and symptoms; Cough and shortness of breath TECHNIQUE: Imaging protocol: XR of the chest, 2 views. COMPARISON: CR XR PORTABLE CHEST AP 08/11/2018 2:07 PM FINDINGS: Lungs: Peribronchiolar thickening and linear airspace opacities are present. No focal airspace consolidation. Pleural space: No large pleural effusion or pneumothorax. Heart/Mediastinum: Cardiomediastinal silhouette is unchanged. Bones/joints: Moderate degenerative change of the spine. IMPRESSION: Findings as above can be seen with viral etiology or reactive airway disease. No focal airspace consolidation. Dictated and Authenticated by: Raya Salinas MD. Ordering:ALYSON Alexis MD
[2019-03-22] MEDS: Albuterol HFA 8 GM 60 PUFF INH IH (19:19)
[2019-03-22] MEDS: Inhaler, Assist Device 1 EACH MC (19:19)
== END 2019-03-22 19:23 | disposition home or self-care (01) ==
PROVIDERS: Emergency Provider Physician Assistant; PCP Family Medicine
DX: J20.9 Acute bronchitis, unspecified (principal)
CPT/HCPCS: 87449; 94640; 99283; 71046; J7620

== ENCOUNTER 2019-04-13 06:10 | Day surgery (SDC) | payer OTHER, SELFPAY ==
[2019-04-13] VITALS (10 sets, daily range): BP systolic 86–133; BP diastolic 50–77; PULSE 77–88; RESP 13–20; TEMP 36.1–37.2; O2SAT 95–100
--- NOTE | 2019-04-13 06:37 | HPE_ITS ---
Date of service: 04/13/19 Time of Service: 06:37 Assessment and Plan (1) Encounter for screening colonoscopy: Current visit: No Status: Acute A\\ Colon Cancer Screening P\\ Colonoscopy under sedations Risks, benefits and complications have been reviewed. Complications include but are not limited to bleeding, pain, perforation, missed small lesion/polyp, sore throat, aspiration and adverse reaction to the medications. Questions were entertained and answered to their satisfaction and they wished to proceed. No guarantees were given or implied. History of Present Illness Narrative: 53 y/o female with history of diverticulitis, HTN and GERD presents for her first colonoscopy screening pre-op. She denies a family history of colon cancer. She recently had a bout of diverticulitis and has recently completed her antibiotics. She is aware that her Colonoscopy will need to be postponed for 6 weeks. Prior to this bout of diverticulitis she denies any changes in bowel habits including bloody or black tarry stools, abdominal pain, diarrhea or constipation. She denies constitutional symptoms. Denies use of marijuana or any other recreational or illegal drugs. She denies chest pain, palpitations, dyspnea or dyspnea with exertion. She reports prior history of aspiration following anesthesia. No changes in her history since she was last seen in the office Review of Systems Constitutional Denies fever(s) Cardiovascular Denies chest pain at rest, Denies chest pain with activity, Denies dyspnea and Denies dyspnea on exertion Respiratory Denies cough, Denies dyspnea and Denies dyspnea on exertion [facility] Medical History Yeast vaginitis (Acute) FERNANDEZ (dyspnea on exertion) (Chronic) Diverticulitis (Chronic) Lumbar disc herniation (Acute 02/26/17) Trochanteric bursitis, left hip (Acute) Chronic pain (Acute 04/03/17) BMI 36.0-36.9,adult (Acute 03/22/16) 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) Left lumbar radiculitis (Acute) Lumbosacral spondylosis without myelopathy (Acute) Foraminal stenosis of lumbar region (Acute) Fatigue (Acute) JANNA (obstructive sleep apnea) (Chronic) Essential hypertension GERD (gastroesophageal reflux disease) Lumbago with sciatica Surgical History Cholecystectomy Cystectomy, Mini Lap Ovarian EXCISION, CALCANEAL SPUR Excision, Lipoma (09/25/16) Family History Mother Essential hypertension Father Essential hypertension Stroke Bladder cancer Sister Essential hypertension FAMILY HISTORY Hemochromatosis Social History Smoking/Tobacco Use Status: Never Alcohol Intake: current Alcohol Intake frequency: holidays/special occasions only Drug use: Never Substance use type: does not use Household members: none current occupation: [employer] Pets and animals: Yes Pets and animals: dog(s) What type of physical activity do you participate in: none Frequency: does not exercise Yane/Latter Day: Christianity Special yane needs: No Do you feel safe at home: Yes Do you feel safe in your relationship?: Yes Meds Home Medications Medication Instructions Recorded Confirmed Type clotrimazole-betamethasone 1 1 applic TP BID #45 gm 08/01/18 04/07/19 Rx %-0.05 % topical cream duloxetine 30 mg capsule,delayed 30 mg PO DAILY #90 cap 08/01/18 04/13/19 Rx release omeprazole 40 mg capsule,delayed 40 mg PO DAILY #90 cap 08/01/18 04/13/19 Rx release metoprolol succinate ER 50 mg 50 mg PO DAILY #90 tab 10/14/18 04/13/19 Rx tablet,extended release 24 hr lisinopril 5 mg tablet 5 mg PO DAILY #90 tab 01/28/19 04/13/19 Rx ondansetron HCl 4 mg tablet 4 mg PO BID-TID PRN #12 tab 02/06/19 04/07/19 Rx bisacodyl 5 mg tablet,delayed 5 mg PO ONCE #4 tab 02/16/19 03/22/19 Rx release polyethylene glycol 3350 17 238 g PO ONCE #238 gm 02/16/19 03/22/19 Rx gram/dose oral powder Allergies Allergy/AdvReac Type Severity Reaction Status Date / Time hydrocodone AdvReac Intermediate NAUSEA Verified 04/13/19 06:30 codeine AdvReac Unknown NAUSEA Verified 04/13/19 06:30 Exam HENMT Head: normocephalic and atraumatic Resp Effort & Inspection: normal respiratory effort Auscultation: clear to auscultation bilaterally Cardio Rate: regular rate Rhythm: regular rhythm Heart Sounds: no gallops, no murmurs and no rubs Results Last Vital Signs Temp 98.8 F 04/13/19 06:32 Pulse 81 04/13/19 06:32 Resp 18 04/13/19 06:32 BP 133/75 04/13/19 06:32 Pulse Ox 100 04/13/19 06:32
--- NOTE | 2019-04-13 06:40 | W.COLOREPORT ---
Date of service: 04/13/19 Time of Service: : Colonoscopy Report Date of procedure: 04/13/19 Pre-op diagnosis general: Colon Cancer Screening Post-op diagnosis procedure note: other (descending and sigmoid diverticulosis, sigmoid polyp) Procedure: Colonoscopy with polypectomy Surgeon: Brenda Ly Anesthesia proc note operative: other (General/ ASA 2/Khris Chaney, ASHLEE) Estimated blood loss (mL): 3 Pathology: other (sigmoid polyp) Complications: Other (aspiration and desating with need for intubation) Disposition: same day Indications: Mrs. Anaya is a pleasant 53 year old female who was seen in the office to discuss a screening colonoscopy. She has no family history of colon Cancer. Risks, benefits and complications have been reviewed. Complications include but are not limited to bleeding, pain, perforation, missed small lesion/polyp, sore throat, aspiration and adverse reaction to the medications. Questions were entertained and answered to their satisfaction and they wished to proceed. No guarantees were given or implied. Prep: Miralax/Dulcolax Procedure Start Time: : Procedure End Time: 08:16 Retraction Time: 26 minutes Findings: Severe diverticulosis of the descending and sigmoid colon Flat small <1 cm polyp in the sigmoid colon Procedure Description: After informed consent was obtained the patient was taken to the procedure room and placed in a left decubitous position. Monitors were applied and a time out was done. The patients name, date of , procedure, allergies to medications and metal in their body was reviewed. The patient was then sedated. Once sedated and comfortable a rectal exam was done. External exam was normal. Internal exam revealed a normal sphincter tone and no palpable masses. The scope was then introduced and retro-flexed. Grade 1 internal hemorrhoids were identified as well as an internal hemorrhoidal tag. No masses or polyps identified. The scope was then advanced to the cecum with some difficulty due to the number of diverticula and the tortuousity. The TI and appendiceal orifice were identified. The prep was adequate. The scope was then slowly retracted over 26 minutes back into the rectum. One polyp was removed in the sigmoid colon with cold forceps. It was less then 1 cm in size and removed in one bite. The scope was removed and the patient was woken up and taken back to Same day surgery in stable condition. When I was advancing the scope along the transverse colon the patient started to desaturate, she was placed in a supine position and intubated. Please see anesthesia record for details. Once intubated the scope was advanced to the cecum. She was woken up slowely after the procedure and extubated and taken back to PACU in stable position. Follow up: The patient should follow up in 3-5 years unless they develop changes in bowel habits or other new gastrointestinal complaints.
--- NOTE | 2019-04-13 06:42 | W.PM.DSUDISC ---
Discharge Plan Disposition Patient Disposition: HOME Condition: Good Discharge Details Reason For Visit: Colonoscopy Attending Provider: Brenda Ly Primary Care Provider: Dmitry Guerra Home Meds and New Rx's Prescriptions: Continued lisinopril 5 mg tablet 5 mg PO DAILY Qty: 90 RF: 3 ondansetron HCl 4 mg tablet 4 mg PO BID-TID PRN (Reason: nausea and vomiting) Qty: 12 RF: 0 duloxetine 30 mg capsule,delayed release(DR/EC) 30 mg PO DAILY Qty: 90 RF: 3 omeprazole 40 mg capsule,delayed release(DR/EC) 40 mg PO DAILY Qty: 90 RF: 3 clotrimazole-betamethasone 1-0.05 % cream 1 applic TP BID Qty: 45 RF: 1 metoprolol succinate 50 mg tablet extended release 24 hr 50 mg PO DAILY Qty: 90 RF: 3 Discontinued polyethylene glycol 3350 17 gram/dose powder 238 g PO ONCE Qty: 238 RF: 0 bisacodyl [Dulcolax (bisacodyl)] 5 mg tablet,delayed release (DR/EC) 5 mg PO ONCE Qty: 4 RF: 0 Discharge Instructions Instructions: Colonoscopy (DC), Diverticulosis (DC), Colorectal Polyps (DC) Additional Instructions: Findings: diverticulosis descending and sigmoid colon 1 small polyp Follow up: 3-5 years Please call if you develop: fevers >101.5 Nausea or Vomiting Abdominal pain that is not transient DAY SURGERY UNIT POST COLONOSCOPY INSTRUCTIONS 1. Because there will be medication in your system for the next 24 hours, you may feel a little sleepy. Your coordination will be affected. Therefore: a. Do not drive or operate dangerous equipment for 24 hours. b. Do not drink alcohol beverages for 24 hours (not even beer). c. Plan to go home and rest for the day. 2. Generally there are no restrictions on your activity after a day or so has gone by, but you may feel a bit fatigued for a few days. 3 After you arrive home you may have a light meal and return to a normal diet as you can tolerate it without feeling sick to your stomach. 4. After surgery, you may feel pain or discomfort. This should be only transient, but if it persists please contact your doctor. 5. If there are any questions regarding the findings of your procedure, please feel free to contact your doctor. 6. If you are unable to contact your doctor with a problem, contact the hospital at [phone]. 7. Continue all your regular medications unless directed otherwise. I understand the above instructions and have no questions. Signature of Patient or Responsible Adult Escort Date/Time Name of Responsible Adult Escort Signature of Nurse Date/Time Stand Alone Forms: Nelson Harper (NONIU) Activity:: Activity as Tolerated Diet:: high fiber diet Discharge Orders Discharge Orders: Discharge Order (Routine); Ordered 04/13/19 Ordered By: Brenda Ly DS: Diagnosis Discharge Diagnosis (1) S/P colonoscopy: Status: Acute (2) Diverticulosis: Status: Acute (3) Colorectal polyp detected on colonoscopy: Status: Acute
[2019-04-13] MEDS: Lactated Ringers 1,000 ML 80 ML IV (06:54)
[2019-04-13] MEDS: Sodium Citrate 30 ML CUP (07:20)
--- NOTE | 2019-04-13 08:14 | BOWEL_PTH ---
PATIENT: Kailee Anaya LOC: [facility] U#:[id number] AGE/SX: 53/F ROOM: RE04/13/[address]: Brenda Ly MD : 1965 BED: DIS: 04/13/2019 SPEC #: [id number] RECD: 04/13/19 11:22 STATUS: ADDY REQ #: [id number] DEBRA: 04/13/19 08:[address]: Brenda Ly DEPT: Surgical Specimen RECD BY: Roberta Temple ENTERED: 04/13/19 11:23 SP TYPE: Bowel OTHR DR: Dmitry Guerra MD Tissues: 1 - BIOPSY BOWEL Procedures: GROSS AND MICRO LEVEL 4 Comments: [id number]
[2019-04-13] MEDS: Albuterol/Ipratropium 3 ML UPD VIAL UPD (08:55)
== END 2019-04-13 10:35 | disposition home or self-care (01) ==
PROVIDERS: PCP Family Medicine; Visit Provider Surgery
PROC: 0DJD8ZZ Inspection of Lower Intestinal Tract, Via Natural or Artificial Opening Endoscopic (ICD-10-PCS; CPT 45378; principal; 2019-04-13 07:30)
DX: Z12.11 Encounter for screening for malignant neoplasm of colon (principal); K62.1 Rectal polyp; K57.30 Diverticulosis of large intestine without perforation or abscess without bleeding; K64.0 First degree hemorrhoids; K63.89 Other specified diseases of intestine; R09.02 Hypoxemia; I10 Essential (primary) hypertension; K21.9 Gastro-esophageal reflux disease without esophagitis; G47.33 Obstructive sleep apnea (adult) (pediatric)
CPT/HCPCS: 45380; 88305; NC; J7620

== ENCOUNTER 2020-05-17 11:40 | Outpatient (CLI) | payer OTHER, SELFPAY ==
--- NOTE | 2020-05-17 11:30 | DI.RAD_ITS ---
EXAM: XR KNEE LT 2V AP,LAT CLINICAL HISTORY: pain TECHNIQUE: COMPARISON: CR LEFT KNEE 3 VIEW COMPLETE from 01/06/2013 FINDINGS: Two views were obtained. There is narrowing of the lateral tibiofemoral cartilaginous joint space. Mild marginal osteophyte formation noted involving all 3 joints of the knee. There may be a small kn ee joint effusion. IMPRESSION: Degenerative changes predominantly involving lateral tibiofemoral joint
== END 2020-05-17 12:00 ==
PROVIDERS: PCP Family Medicine; Referring Provider Family Medicine; Visit Provider Orthopaedic Surgery
DX: M25.562 Pain in left knee (principal); M25.462 Effusion, left knee; M17.12 Unilateral primary osteoarthritis, left knee
CPT/HCPCS: 73560

== ENCOUNTER 2020-06-30 10:28 | Outpatient (CLI) | payer OTHER, SELFPAY ==
--- NOTE | 2020-06-30 10:15 | DI.RAD_ITS ---
EXAM: XR HIP LT COMPLETE AP PELVIS CLINICAL HISTORY: hip pain TECHNIQUE: COMPARISON: CR PELVIS AP from 10/27/2014 FINDINGS: Two views were obtained. The cartilaginous joint spaces of the hips appear fairly well maintained. Minimal hypertrophic spurring of the acetabula noted. No other significant bony abnormality seen. IMPRESSION: Minimal DJD both hips.
== END 2020-06-30 10:48 ==
PROVIDERS: PCP Internal Medicine; Referring Provider Internal Medicine; Visit Provider Student in an Organized Health Care Education/Training Program
DX: M16.0 Bilateral primary osteoarthritis of hip (principal)
CPT/HCPCS: 73502

== ENCOUNTER 2020-07-14 00:47 | Outpatient (CLI) | payer OTHER, SELFPAY ==
--- NOTE | 2020-07-14 08:00 | DI.RAD_ITS ---
EXAM: RF JOINT INJECTION FLUORO GUID CLINICAL HISTORY: L HIP INJ UNDER FLUORO,LT HIP PAIN,M25.552. TECHNIQUE: 2D and realtime digital imaging was performed. COMPARISON: No exams were available for comparison FINDINGS: Fluoroscopy was provided for guidance with performing a right hip injection. A single hard copy imag e shows needle projecting at the lateral margin of the left femoral head and injection of a small yasmine unt of contrast. Please see procedure note for details. Fluoro time: 5 sec, 24.3 mGy RADIATION DOSE DELIVERED:
--- NOTE | 2020-07-14 15:07 | W.PROCNOTE ---
Date of service: 07/14/20 Time of Service: 15:07 Procedure Note Date of procedure: 07/14/20 Procedure: Left Hip Injection with Fluoroscopic Guidance Surgeon/Proceduralist/Physician: Kranthi Murguia Procedure Diagnosis: Left Hip Osteoarthritis Procedure Indications: Kailee has had persistent pain of the LEFT hip, buttock, and groin. Noninvasive measures have been tried. She already had a bursal debridement and ITB lengthening but continues to have pain worsened with hip testing. To serve as both diagnostic and therapeutic, an injection under fluoroscopy was recommended. I had discussed the risks of the procedure and the patient elected to proceed. Procedure Description: Kailee was greeted in the flouroscopy room. The correct side was identified and the consent was reviewed with the patient and signed. The patient was then placed in the supine position on the fluoroscopy table. The LEFT hip was then prepped with Chloraprep. The anterolateral injection starting point was identiifed by bony landmarks and fluoroscopy. The skin and soft tissue in the tract of the injection was anesthetized with 1% Lidocaine. A spinal needle was then inserted deep into the hip joint at the level of the lateral femoral neck under fluoroscopic guidance. A small amount of Omnipaque solution was injected to confirm intraarticular placement. Once confirmed, the hip was injected with 6cc of 0.5% Bupivicaine and 80mg of Depo-Medrol. A bandaid was placed on the injection site. The patient tolerated the procedure well and noted improvement in pre-injection pain.
[2020-07-14] MEDS: Bupivacaine 0.5% Pres-Free 10 ML VIAL IJ (15:10)
[2020-07-14] MEDS: methylPREDNISolone ACETATE 80 MG/ML VIAL IM (15:11)
[2020-07-14] MEDS: Omnipaque 300 MG/ML 10 ML BTL IJ (15:11)
--- NOTE | 2020-07-15 07:54 | W.PROCNOTE ---
Date of service: 07/14/20 Time of Service: 15:20 Procedure Note Date of procedure: 07/14/20 Procedure: Left Hip Injection with Fluoroscopic Guidance Surgeon/Proceduralist/Physician: Kranthi Murguia Procedure Diagnosis: Left Hip Osteoarthritis Procedure Indications: Kailee has had persistent pain of the LEFT hip. Noninvasive measures have been tried. To serve as both diagnostic and therapeutic, an injection under fluoroscopy was recommended. I had discussed the risks of the procedure and the patient elected to proceed. Procedure Description: Kailee was greeted in the flouroscopy room. The correct side was identified and the consent was reviewed with the patient and signed. The patient was then placed in the supine position on the fluoroscopy table. The LEFT hip was then prepped with Chloraprep. The anterolateral injection starting point was identiifed by bony landmarks and fluoroscopy. The skin and soft tissue in the tract of the injection was anesthetized with 1% Lidocaine. A spinal needle was then inserted deep into the hip joint at the level of the lateral femoral neck under fluoroscopic guidance. A small amount of Omnipaque solution was injected to confirm intraarticular placement. Once confirmed, the hip was injected with 6cc of 0.5% Bupivicaine and 80mg of Depo-Medrol. A bandaid was placed on the injection site. The patient tolerated the procedure well and noted improvement in pre-injection pain.
== END 2020-07-14 01:07 ==
PROVIDERS: PCP Internal Medicine; Visit Provider Student in an Organized Health Care Education/Training Program
DX: M25.552 Pain in left hip (principal); M16.12 Unilateral primary osteoarthritis, left hip; M79.18 Myalgia, other site
CPT/HCPCS: 20610; 77002; J1040

== ENCOUNTER 2020-08-25 04:39 | Outpatient (CLI) | payer OTHER, SELFPAY ==
[2020-08-25 15:47] LABS: Abs Immature Grans 0.02 10^3/uL (0.0-0.06); Absolute Basophil Count 0.07 10^3/uL (0.0-0.2); Absolute Eosinophil Count 0.11 10^3/uL (0.0-0.7); Absolute Lymphocyte Count 2.13 10^3/uL (1.2-3.4); Absolute Monocyte Count 0.86 10^3/uL (0.1-0.8); Absolute Neutrophil Count 4.57 10^3/uL (1.2-6.7); Basophils % 0.9; Eosinophils % 1.4; HCT 39.9 % (36.0-46.0); HGB 13.3 g/dL (11.2-15.7); Immature Grans % 0.3; Lymphocytes % 27.4; MCH 30.4 pg (27.0-33.0); MCHC 33.3 % (32.0-36.0); MCV 91.1 fL (80-95); Monocytes % 11.1; Neutrophils % 58.9; Nucleated RBC 0 %; Platelet Count 397 10^3/uL (130-400); RBC 4.38 10^6/uL (3.93-5.22); RDW 12.2 % (11.7-14.6); RDW-SD 40.6 fL; WBC 7.76 10^3/uL (4.4-10.8)
[2020-08-25 16:34] LABS: ALT 43 U/L (14-59); AST 22 U/L (15-37); Albumin 3.6 g/dL (3.4-5.0); Alkaline Phosphatase 78 U/L (46-116); Anion Gap 9.3 mmol/L (3-11); BUN 12 mg/dL (7-18); Bilirubin, Total 0.3 mg/dL (0.2-1.0); CO2 25.7 mmol/L (21.0-32.0); CREATININE 0.88 mg/dL (0.55-1.02); Calcium 8.8 mg/dL (8.5-10.1); Chloride 103 mmol/L (98-107); Glucose 74 mg/dL (74-106); Potassium 4.5 mmol/L (3.5-5.1); Sodium 138 mmol/L (136-145); Total Protein 6.5 g/dL (6.4-8.2)
[2020-08-25 16:57] LABS: Calculated LDL 154 mg/dL (<100); Cholesterol 238 mg/dL (<200); HDL Cholesterol 61 mg/dL (40-60); Triglyceride 117 mg/dL (<150)
== END 2020-08-25 04:59 ==
PROVIDERS: PCP Internal Medicine; Visit Provider Nurse Practitioner Family
DX: E78.49 Other hyperlipidemia (principal); I10 Essential (primary) hypertension; K21.00 Gastro-esophageal reflux disease with esophagitis, without bleeding; R73.03 Prediabetes
CPT/HCPCS: 36415; 80053; 80061; 83036; 85025

== ENCOUNTER 2020-09-13 00:48 | Outpatient (CLI) | payer OTHER, SELFPAY ==
--- NOTE | 2020-09-13 12:41 | DI.MAMMO_ITS ---
EXAM: MAMMO SCREENING CLINICAL HISTORY: SCREENING,Z12.31 TECHNIQUE: Mammograms were interpreted according to the usual protocol including computer analysis w [employer] CAD system, tomosynthesis and C-view imaging. COMPARISON: 2011 through 2017 FINDINGS: The breasts are composed of scattered fibroglandular densities, Breast Density category B. No suspicious masses or suspicious microcalcifications are seen. No skin thickening or abnormal axillary lymph nodes are seen. There has been no significant change from prior exams. IMPRESSION: BI-RADS Category 1, Negative mammogram Yearly screening mammography is recommended. Breast Density - Category B, scattered fibroglandular densities. A negative radiographic report should not delay biopsy if a dominant or clinically suspicious mass is present. Up to ten percent of cancers are not identified on mammography. A negative report may reinforce clinical impression. Adenosis and dense breasts may obscure an underlying neoplasm. False positive reports average 6 to 10%. Patient will receive a letter notifying them of these results.
== END 2020-09-13 01:08 ==
PROVIDERS: PCP Internal Medicine; Visit Provider Nurse Practitioner Family
DX: Z12.31 Encounter for screening mammogram for malignant neoplasm of breast (principal)
CPT/HCPCS: 77063; 77067

== ENCOUNTER 2020-10-19 02:11 | Outpatient (CLI) | payer OTHER, SELFPAY ==
[2020-10-20 15:25] LABS: SARS-CoV-2 RNA Not Detected (NotDetected); SARS-CoV-2 RNA Source Nasal/Nares
== END 2020-10-19 02:31 ==
PROVIDERS: PCP Internal Medicine; Visit Provider Student in an Organized Health Care Education/Training Program
DX: Z11.59 Encounter for screening for other viral diseases (principal); Z01.818 Encounter for other preprocedural examination
CPT/HCPCS: U0003

== ENCOUNTER 2020-10-19 02:45 | Outpatient (CLI) | payer OTHER, SELFPAY ==
[2020-10-19 11:22] LABS: HCT 40.7 % (36.0-46.0); HGB 13.5 g/dL (11.2-15.7); MCH 30.1 pg (27.0-33.0); MCHC 33.2 % (32.0-36.0); MCV 90.6 fL (80-95); MPV 11.1 fL (8.0-11.0); Platelet Count 420 10^3/uL (130-400); RBC 4.49 10^6/uL (3.93-5.22); RDW 12.2 % (11.7-14.6); RDW-SD 40.4 fL; WBC 7.85 10^3/uL (4.4-10.8)
[2020-10-19 11:57] LABS: Anion Gap 6.5 mmol/L (3-11); BUN 13 mg/dL (7-18); CO2 26.5 mmol/L (21.0-32.0); CREATININE 0.97 mg/dL (0.55-1.02); Calcium 8.9 mg/dL (8.5-10.1); Chloride 103 mmol/L (98-107); Estimated GFR 59.84 (mL/min/1.73m2); Glucose 108 mg/dL (74-106); Potassium 5.1 mmol/L (3.5-5.1); Sodium 136 mmol/L (136-145)
== END 2020-10-19 03:05 ==
PROVIDERS: PCP Internal Medicine; Visit Provider Student in an Organized Health Care Education/Training Program
DX: M16.32 Unilateral osteoarthritis resulting from hip dysplasia, left hip (principal); Z01.818 Encounter for other preprocedural examination; Z01.812 Encounter for preprocedural laboratory examination
CPT/HCPCS: 36415; 80048; 85027; 86850; 86900; 86901; U0003

== ENCOUNTER 2020-10-25 08:32 | Observation (INO) | payer OTHER, SELFPAY ==
[2020-10-25] VITALS (14 sets, daily range): BP systolic 51–160; BP diastolic 25–89; PULSE 59–93; RESP 12–23; TEMP 35–37.1; O2SAT 95–98
--- NOTE | 2020-10-25 09:15 | DI.RAD_ITS ---
EXAM: XR HIP LT IN OR CLINICAL HISTORY: Osteoarthritis of left hip joint due to dysplasia TECHNIQUE: 2D and realtime digital imaging was performed. COMPARISON: No exams were available for comparison FINDINGS: C-arm fluoroscopy was utilized by Dr. Murguia during placement of left hip prosthesis. Hard copy sh ows femoral and acetabular components in good position. Fluoro time, 47.8 seconds. IMPRESSION: RADIATION DOSE DELIVERED: Total DLP
[2020-10-25] MEDS: Acetaminophen 500 MG TAB 1000 MG PO ×3 (09:38→19:28)
[2020-10-25] MEDS: Celecoxib 200 MG CAP 400 MG PO (09:39)
[2020-10-25] MEDS: Lactated Ringers 1,000 ML 80 ML IV ×3 (09:40→23:45)
[2020-10-25] MEDS: ceFAZolin 2 GM/50 ML BAG IVPB (10:48)
[2020-10-25] MEDS: Ketorolac 30 MG/ML VIAL (12:14)
[2020-10-25] MEDS: Bupivacaine 0.25% Pres-Free 30 ML VIAL (12:14)
--- NOTE | 2020-10-25 13:01 | W.PM.OP ---
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 Depuy Organ Acetabular Component, 50mm 2. Depuy Acetabular Liner, [id number] 3. Depuy Corail Short Neck 135 Collared Femoral Stem, Size 10 4. Depuy Altrx Ceramic Femoral Head, Size 32+9mm Indications: I have seen Kailee in clinic for symptoms of hip arthritis, confirmed with radiographic findings. Kailee has exhausted nonoperative methods and was having significant limitations in daily function and desired better function and less pain. I discussed the technical details of a hip replacement. I explained the risks of the procedure to include, but not limited to, bleeding, infection, pain, stiffness, fracture, damage to nerves and vessels, damage to muscles and tendons, loosening, instability, leg length inequality, need for repeat procedure, blood clot and cardiopulmonary demise. Despite these risks, she elected to proceed. Findings: There was focal area of chondromalacia of the superior femoral head with some wear of the superior acetbulum. Procedure Description: Kailee was greeted in the preoperative holding area where the correct side was identified and marked. The consent was reviewed with the patient and signed. The history and physical was updated. All questions were answered. Kailee was taken back to the operating room. A spinal anesthestic was then administered. The feet were wrapped with cast padding and Coban and then placed into the boot liners and then into the boots. Care was taken to protect the skin and make sure the heels were fully down and the boots were stable. The patient was then positioned onto the HANA table. Both legs were held in a neutral position. SCDs were applied. The patient was then slid down onto a peroneal post. A preoperative AP pelvis was obtained to serve as a reference for determining leg lengths. Prophylactic antibiotics in the form of Cefazolin were administered. 1g of Tranxemic Acid was given intravenously within 30 minutes of incision. The left leg was then prepped with Chloraprep and draped in a standard fashion. A second prep with Chloraprep was performed prior to placement of a shower-curtain type drape with Iodine impregnated skin protection. A timeout to confirm correct identity, side and site, procedure, allergies, anesthesia, and medical concerns was performed. An obliquely oriented incision was made starting lateral to the ASIS and running distal over the Tensor Fascia Leigh Ann (TFL) muscle belly toward the fibular head, approximately 10cm. The skin and soft tissue was dissected sharply, through Karthik?s fascia, and to the fascia of the TFL. With the fascia and superior border of the IT band identified, the fascia was incised with a new knife just above any perforators from the IT band. The TFL muscle belly was bluntly dissected away from the fascia and moved laterally. The fat between TFL and rectus was identified to ensure the dissection was not within the TFL. Blunt dissection created space between abductors and the capsule and retractor was placed over the lateral femoral neck. The fibers of the rectus femoris tendon were identified and these were freed from the anterior capsule. A second cobra retractor was placed around the medial femoral neck. The TFL was further retracted laterally to show the deep fascia. Careful dissection through this layer identified three main crossing vessels of the lateral femoral circumflex. These were cauterized in multiple locations and then cut without any noticeable bleeding. The TFL was further released bluntly from the deep fascia to expose anterior hip capsule and fat The Tyrel orthopaedic retractor was then placed beneath the TFL and against sartorius and medial soft tissues to protect and retract the soft tissues. A T-capsulotomy was then performed starting at the superior lateral acetabulum and moving distally to the intertrochanteric ridge. These capsular flaps were tagged with a No. 1 Ethibond and elevated from within. The capsular flaps were released to the shoulder of the lateral neck and to the lesser trochanter to give excellent visualization of the proximal femur. A neck osteotomy was performed using an oscillating saw based on preoperative templates. This cut started in the shoulder and of the lateral neck and exited medially. The saw was at all times directed medially to avoid injury to the greater trochanter. 6cm of traction was applied to the leg and the osteotomy opened. The femoral head was removed with a corkscrew, making sure to protect the TFL on its exit. Traction was released after head removal. This was measured on the back table to determine the starting reamer size. Portions of the rectus obscuring visualization were minimally elevated off the superior acetabulum. An anterior retractor was placed over the anterior wall between capsule and labrum and attached to the Gripper retraction system. The femur was rotated to 90 degrees and medial capsule was fully released until the lesser trochanter was palpable and visible; the femur was returned to 30 degrees. A posterior retractor was placed similarly between capsule and labrum. This provided excellent visualization. The contents of the cotyloid fossa were removed with electrocautery and the labrum was removed with a knife. There was significant chondromalacia of the superior acetabulum. Acetabular reaming began with a 44mm reamer. This first reaming was directed anterior to posterior and medial to get down to the true floor. This was inspected and reamed until the true floor was reached. The anterior retractor was then released and entry and exit was provided by traction on the capsular flaps. I then reamed sequentially up to a 49mm reamer where good fit was obtained. The larger reamers were oriented based on anatomical reference of the anterior and lateral arrington to ensure proper abduction and anteversion. Positioning and size was confirmed with the fluoroscopy. A 50mm Depuy Organ acetabular component was selected. The acetabulum was reamed around the periphery with the selected acetabular size to prevent a rim fit. The deep tissues were irrigated. The acetabular component was then impacted in a position of about 40-45 degrees of abduction and 15-20 degrees of anteversion, using the patient?s anatomy as the ultimate landmark. Fluoroscopy was used to confirm this. There was excellent participant administrator of the acetabular component and the inserting handle was removed. A primary acetabular screw was placed into the ilium by drilling through one of the holes in the acetabular component. This was measured and an approrpriately sized screw was placed with excellent purchase. It was checked not to be proud. A second screw was placed in a similar fashion. The acetabular liner, Depuy [id number] polyethylene liner, was inserted and lined up with the tines of the acetabular component. There was no soft tissue interposition. The liner was then impacted into position and confirmed to be well-seated. A portion of the eyad-articular cocktail was then injected around the acetabulum into the capsule and periosteum. This cocktail consisted of 50cc of 0.25% Bupivicaine and 20cc of Exparel and 30mg of Ketorolac. The leg was rotated to 120 degrees. Any remaining medial capsule was released until the lesser trochanter was easily palpable. A retractor was placed medially. The lateral capsule was further released into the shoulder to allow access to the greater trochanter. A Azar retractor was placed over the greater trochanter which allowed the trochanter to flip in front of the capsule for excellent exposure. The leg was brought down into maximal extension and 20 degrees of adduction while ensuring there was no impingement on the acetabulum. Any remnant capsule within the trochanter was released. Piriformis and obturator externis were identified and protected. There was excellent access to the proximal femur. The lateral neck remnant was removed with a rongeur. A blunt canal probe was used to identify the canal and trajectory for later broaching. A box osteotome initiated the broach course. A small curved rasp and a curved curette were used to work laterally. Broaching then began with a size 8 Corail broach. This was inserted manually around the trochanter and into the canal before mallet blows. The broach was seated to a few millimeters below the cut level based on the neck cut and the preoperative template. Sequential broaching was continued with the [employer] pneumatic broaching device until a tight fit was obtained with good rotational control of the femur. A trial standard short neck was inserted along with a +5 trial head. The leg was brought out of extension and adduction and then reduced with traction and internal rotation. The leg was stable anteriorly in a position of 30 degrees of extension and 90 degrees of external rotation. Fluoroscopy was used to ensure there was no fracture and the stem was seated well. Leg lengths were checked with an AP pelvis and pelvic reference points. [employer] navigation system was used to confirm appropriate positioning and leg length and offset. Head size was changed to +9. Once content with the desired offset and leg lengths, the leg was brought back into extension, external rotation and adduction. The periosteum and surrounding tissue was injected with remaining portion of the eyad-articular cocktail. The proximal femur was irrigated as well as the deep tissues. The Depuy Corail short neck collared stem, size 10, was then manually inserted into the proximal femur making sure to control rotation. It was then malleted into position with light blows, giving breaks to allow bone expansion and decrease risk of fracture. The selected Depuy Altrx Ceramic Head, size 32+9mm, was then placed onto the clean and dry trunnion and secured with impaction onto the tapered fit. The leg was brought back out of extension and adduction and reduced with traction and internal rotation. Stability was confirmed with no shuck at 90 degrees of external rotation and 30 degrees of extension. No impingement through range of motion arc. Final x-ray images were obtained with fluoroscopy to confirm adequate positioning and no intraoperative fracture. There was a small crack seen at the medial calcar which was stable and did not extend below the intertrochanteric ridge. The deep tissues were thoroughly irrigated with Irrisept chlorhexadine solution. The second dose of TXA 1g was administered intravenously.The capsule was then reapproximated with the previously placed Ethibond sutures. The TFL fascia was finally closed with a No. 2 Stratafix, barbed suture. Deep tissues were then reapproximated with 0 Vicryl and a running 2-0 Vicryl. The skin was closed with a running 4-0 Monocryl in a subcuticular fashion. This was reinforced with skin glue. A Mepilex silver dressing was applied. At the end of the case, all counts were correct. Kailee was transferred to the hospital bed without difficulty and suffering no apparent complication. Kailee has a good prognosis. Physical therapy will start today and without restrictions, weight-bearing as tolerated. Aspirin 81mg BID will be used for DVT prophylaxis.
--- NOTE | 2020-10-25 15:02 | NUR.NOTE ---
Nursing Note: Pt A&Ox3, VSS, due to void. CMST's WNL. icepack in place over left hip. oriented to room. sipping on cola. will continue to monitor.
--- NOTE | 2020-10-25 15:18 | PT.INIE ---
Date of service: 10/25/20 Time of Service: 15:18 PT Notes Physical Therapy Inpatient Initial Evaluation Date: 10/25/2020 Referring Doctor: Kranthi Murguia MD PT Orders: PT CONSULT: Status post Ortho surgery. Status post left VERONIKA. Precautions: Fall. Standard. WBAT on left LE. Patient Profile/Admitting Diagnosis: Kailee is a 54-year-old female with a left femoroacetabular impingement with focal chondromalacia and is status post left total hip arthroplasty on postoperative day 0. 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 PASTRANA (R) Excision, Lipoma (09/25/16) S/P colonoscopy (~04/13/19) Social History/Home Situation: Lives with relatives in a private home with 3 steps to enter and a rail on 1 side. All aspects of ADLs prior to surgery. 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 No falls in the past 12 months. Equipment Owned/DME: [facility] Subjective: Pleasant and cooperative. Agreeable to PT consult. Denies headache, chest pain, and lightheadedness throughout. Objective: General Observation: Supine in bed. IV in the right UE. Mepilex Ag over surgical incision. Cold pack on L hip. Mental Status: Alert and oriented x4 Pain: 1/10 in the left hip ROM: Right Upper Extremity: Shoulder Flexion WFL. Shoulder abduction WFL. Elbow flexion WFL. Wrist flexion WFL. Opening and closing of hand WFL. Left Upper Extremity: Shoulder Flexion WFL. Shoulder abduction WFL. Elbow flexion WFL. Wrist flexion WFL. Opening and closing of hand WFL. Right Lower Extremity: Hip flexion WFL. Hip abduction WFL. Knee flexion WFL. Ankle dorsiflexion WFL. Ankle plantarflexion WFL. Left Lower Extremity: Hip flexion WFL. Hip abduction WFL. Knee flexion WFL. Ankle dorsiflexion WFL. Ankle plantarflexion WFL. Strength: Right Upper Extremity: Shoulder flexors 5/5. Shoulder abductors 5/5. Elbow flexors 5/5. Elbow extensors 5/5. Medical Director Of Hospice strong. Left Upper Extremity: Shoulder flexors 5/5. Shoulder abductors 5/5. Elbow flexors 5/5. Elbow extensors 5/5. Medical Director Of Hospice strong. Right Lower Extremity: Hip flexors 5/5. Hip abductors 5/5. Knee flexors 5/5. Knee extensors 5/5. Ankle dorsiflexors 5/5. Ankle plantarflexors 5/5. Left Lower Extremity:Hip flexors 4/5. Hip abductors 4/5. Knee flexors 5/5. Knee extensors 4/5. Ankle dorsiflexors 5/5. Ankle plantarflexors 5/5. Sensation: Intact as to pain and pressure on bilateral lower extremities. Bed Mobility/Transfers: Supine to sit contact-guard assist with HOB at 45 degrees Sit to stand standby assist Stand to sit standby assist Bed to chair standby assist Gait: Instructed on safe navigation on level surface for 150 feet using front wheeled walker with WBAT on the left LE requiring standby assist with step to gait pattern reporting 3?4/10 pain in the left hip. Decreased cecilia. THERA EX: Training provided on performing room level seated active range of motion exercises consisting of long arc quads, seated hip flexion, ankle DF/PF, quad sets, and glutes sets x10-20 reps. Balance: Static Sitting: Normal Dynamic Sitting: Normal Static Standing: Fair Dynamic Standing: Fair Special Tests: Mobility Limitations Standardized Measure [facility] 6 clicks Basic Mobility Inpatient Short Form: Raw Score: 22 CMS Score: 21% deficit Informed Consent/Education: Patient instructed in purpose of PT consult and plan of care. Assessment: Kailee demonstrates functional mobility decline requiring the use of a front wheeled walker for all mobility ADL performance, difficulty with walking without an assistive device, impairment in balance, and increased risk for falls due to postoperative status. Patient presents with clinical signs and symptoms consistent with current/admitting diagnoses that have resulted to mobility limitations, gait instability, generalized weakness, and impairment of motor control as demonstrated by the following impairment level findings: 1. Decreased strength to left hip major muscle groups 2. Impaired standing balance 3. Impaired activity tolerance Impairments are contributing to the following functional limitations: 1. Dependent bed mobility skills 2. Increased dependence with transfers 3. Inability to safely ambulate without assistive device 4. Increase completion time for mobility ADL performance 5. Increased fall risk 6. Inability to negotiate steps alone safely Patient is assessed as a 63502 moderate complexity based on the following: History: 54-year-old female with impairment level findings, functional limitations, and past medical history as indicated above Examination: Demonstrable impairment in strength, balance, and mobility level with underlying impairments and functional limitations as documented above Presentation:Evolving Decision Makin moderate complexity Goals: Goals X 3 days 1. Supine-Sit independent 2. Sit-Supine independent 3. Sit-Stand independent 4. Stand-Sit independent 5. Bed-Chair independent 6. Chair-Bed independent 7. Independent gait on level surface with use of front wheeled walker for at least 300 feet without report of pain nor dyspnea 8. Independent stair negotiation while holding onto bilateral rails for at least 5 steps without report of pain nor dyspnea 9. Independent with home exercise program 10. Good static and dynamic standing balance/tolerance Plan of Care/Treatment Plan: 1-2x/day, 7 days/week x 3 days. Plan of care has been reviewed with the RESIDENTIAL CAREGIVER providing the service under Physical Therapy direction. Initiate Physical Therapy intervention for strengthening, bed mobility, transfers, gait, stairs, balance training, use of assistive device. DISCHARGE RECOMMENDATIONS: Home when medically cleared by orthopedic surgeon. No equipment needs at this time. Outpatient PT in 2 weeks to facilitate return to premorbid independent level and to vocational activities. TREATMENT CODE/TIME: 23063 x 25 minutes, [id number] x 12 minutes beginning at 15:18 p.m. Thank you for the opportunity to participate in the care of this patient. Tricia García PT, DPT, CLT [facility] [place], [place]
[2020-10-25] MEDS: HYDROmorphone 2 MG TAB PO (17:53)
[2020-10-25] MEDS: ceFAZolin 1 GM/50 ML BAG IVPB (17:54)
[2020-10-25] MEDS: Aspirin E.C. 81 MG TABEC PO (19:29)
[2020-10-26] MEDS: ceFAZolin 1 GM/50 ML BAG IVPB ×2 (01:40→10:54)
[2020-10-26 03:39] VITALS: BP 112/53; PULSE 73; RESP 18; TEMP 36; O2SAT 98
[2020-10-26] MEDS: Omeprazole 20 MG CAPCR 40 MG PO (06:47)
[2020-10-26 08:05] VITALS: BP 127/96; PULSE 89; RESP 18; TEMP 36.8; O2SAT 98
--- NOTE | 2020-10-26 08:09 | W.PM.DS.N ---
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 The surgery was tolerated well without any notable medical, surgical, or anesthetic complications. Mobilization began postoperatively. She was voiding spontaneously. Vitals were stable. Physical therapy worked with the patient and was cleared for discharge home. No acute medical issues. Pain was controlled on oral regimen. Home Meds and New Rx's Prescriptions: New celecoxib 200 mg capsule 200 mg PO BID PRN (Reason: pain) Qty: 60 RF: 1 aspirin 81 mg tablet,delayed release (DR/EC) 81 mg PO BID Qty: 60 RF: 0 acetaminophen 500 mg tablet 1,000 mg PO Q8H PRN (Reason: pain) Qty: 90 RF: 3 hydromorphone 2 mg tablet 2 mg PO Q4H PRN (Reason: pain) Qty: 15 RF: 0 docusate sodium [Colace] 100 mg capsule 100 mg PO BID PRNQty: 10 RF: 0 Continued duloxetine 30 mg capsule,delayed release(DR/EC) 30 mg PO DAILY Qty: 90 RF: 3 metoprolol succinate 25 mg tablet extended release 24 hr 25 mg PO DAILY Qty: 90 RF: 3 omeprazole 40 mg capsule,delayed release(DR/EC) 40 mg PO DAILY Qty: 90 RF: 3 clotrimazole-betamethasone 1-0.05 % cream 1 applic TP BID Qty: 45 RF: 1 Discharge Instructions Additional Instructions: Total Hip Discharge Instructions Activity: The most important activity is to walk. You should try to take short walks a few times a day. You have no restrictions on movement or positioning, but do not try to force what you do. You will find some stiffness and weakness with hip flexion (lifting your knee). Do not try to strengthen this too early, continue to practice walking and stairs and this will come. - Outpatient physical therapy can be helpful to help return you to a normal gait and improve your flexibility and strength. This can start around 2 weeks. For some patients, it?s not necessary. Usually this is determined at the time of discharge or at the first post-operative visit. - You should wear the KANDI hose on both legs for 2 weeks. - You may apply ice to the wound and surrounding areas. - Heat may also be helpful away from the incision over the muscles of the thigh and leg along with massage. Dressing: Keep the surgical dressing in place for at least one week. After the first week it may be removed and replace with light gauze and tape or nothing. It may get wet after 3 days but avoid soaking the dressing. If it gets wet, just lightly pat dry. It is important to always keep some gauze between skin folds, especially when you are sitting. Spend some time with the wound exposed when you are lying flat as the incision does wrinkle onto itself. Medications: - You should take Tylenol and an anti-inflammatory Celebrex as your primary pain control medications. If the Celebrex is too expensive or not covered, please call the office for another alternative (Advil/Ibuprofen or Naproxen/Aleve). - You have been prescribed a stronger pain medication Hydromorphone for breakthrough pain, take as needed as prescribed. - You have should continue your stomach acid reduction agent Omeprazole to help reduce stomach acid and reflux. - You will be taking Aspirin 81mg twice a day for DVT prevention unless instructed otherwise. - If you have constipation you should take Colace or Miralax (both [id number]). Colace has been called in. It takes most people 3-4 days to have a bowel movement. Follow-up: 2 weeks If you have any acute concerns or questions, please do not hesitate to contact the office at [phone]. You may contact Dr. Murguia with any questions after hours through the hospital at [phone] or on his cell phone at [phone]. Referrals: Kranthi Murguia MD [ [facility] STAFF PHYSICIAN] - Activity:: Activity as Tolerated Equipment/Supplies:: No Equipment Needed Diet:: As Tolerated Discharge Orders Discharge Orders: Discharge Order (Routine); Ordered 10/26/20 Ordered By: Kranthi Murguia DS: Summary Status at Discharge Functional status at discharge: uses cane/walker Overall status at discharge: patient is progressing back to baseline Mental Status: mental status grossly normal Speech and Movement: speech and movement normal Mood: congruent mood Affect: normal affect Exam Psych Mental Status: mental status grossly normal Speech and Movement: speech and movement normal Mood: congruent mood Affect: normal affect DS: Data Vitals/I&O Vitals and I&O: Vital Signs Temperature 36.8 C 10/26/20 08:05 Temperature Source Tympanic 10/26/20 08:05 Pulse 89 10/26/20 08:05 Pulse Rhythm Regular 10/26/20 06:52 Respiratory Rate 18 10/26/20 08:05 Respiratory Effort Non-Labored 10/26/20 06:52 Respiratory Depth Normal 10/26/20 06:52 Respiratory Pattern Normal 10/26/20 06:52 Blood Pressure 127/96 H 10/26/20 08:05 Pulse Oximetry 98 10/26/20 08:05 Oxygen Delivery Method Room Air 10/26/20 08:05 Oxygen Flow Rate 0 10/26/20 08:05 Pain Level 5 10/26/20 08:05 Comment 10/26/20 08:05 Intake & Output 10/25/20 10/25/20 10/26/20 11:59 23:59 11:59 Intake Total 110 / 2126.666 2016.666 / 2126.666 Output Total 600 / 600 500 / 500 Balance 110 / 9242.650 9759.666 / 1526.666 -500 / -500 Weight 98 kg Intake: IV 110 / 8054.890 9395.666 / 1826.666 Oral 300 / 300 Output: Urine 500 / 500 Estimated Blood Loss 600 / 600 Other: Urine Color Light Yusra Urine Appearance Clear Clear Urine Odor Normal Normal Comment Unable to assess volume, patient removed hat and flushed. Emesis Description None Voiding Methods Toilet Toilet [facility] Medical History At risk for aspiration History of aspiration will under sedation. Likely slow gastric emptying. BMI 36.0-36.9,adult (03/22/16) Chronic pain (04/03/17) Colorectal polyp detected on colonoscopy (~04/13/19) Diverticulitis Diverticulosis (~04/13/19) trial of daily metamucil to prevent diverticulitis FERNANDEZ (dyspnea on exertion) Pt. 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 PASTRANA (R) Excision, Lipoma (09/25/16) x2 S/P colonoscopy (~04/13/19) Family History Mother Essential hypertension Father , AGE 80 Essential hypertension Stroke Bladder cancer Sister Essential hypertension FAMILY HISTORY Hemochromatosis Sister No problems noted. 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[employer] Pets and animals: Yes Pets and animals: dog(s) Sexually active: No Do you think of yourself as: straight/heterosexual Current gender identity: female What is your relationship status?: How often do you talk on the phone with friends or family?: three or more times per week How often do you get together with friends or relatives?: once per week How often do you attend yazidism or latter-day services?: decline to answer Do you belong to any clubs or organized social groups?: no Panel score (0-1 are the most socially isolated patients): 1 What type of physical activity do you participate in: none Frequency: does not exercise Kay/Baptist: Synagogue Special kay needs: No Seatbelt use: always Helmet use: No Drive intox or ride w/intox truss driver helper: No Do you feel safe at home: Yes Do you feel safe in your relationship?: Yes
[2020-10-26] MEDS: DULoxetine 30 MG CAP PO (08:10)
[2020-10-26] MEDS: Aspirin E.C. 81 MG TABEC PO (08:10)
[2020-10-26] MEDS: Docusate Sodium 100 MG CAP PO (08:10)
[2020-10-26] MEDS: Acetaminophen 500 MG TAB 1000 MG PO (08:10)
[2020-10-26] MEDS: Metoprolol CR 25 MG TABCR PO (08:11)
--- NOTE | 2020-10-26 09:57 | INDS_ITS ---
Date of service: 10/26/20 Time of Service: 09:57 PT Notes Visit Reasons: LEFT HIP REPLACEMENT Physical Therapy Inpatient Discharge Summary Date: 10/26/2020 Date of service: 10/25/2020 through 10/26/2020 Referring Doctor: Kranthi Murguia MD PT Orders: PT CONSULT: Status post Ortho surgery. Status post left VERONIKA. Precautions: Fall. Standard. WBAT on left LE. Patient Profile/Admitting Diagnosis: Kailee is a 54-year-old female with a left femoroacetabular impingement with focal chondromalacia and is status post left total hip arthroplasty on postoperative day 1. 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 PASTRANA (R) Excision, Lipoma (09/25/16) S/P colonoscopy (~04/13/19) Social History/Home Situation: Lives with relatives in a private home with 3 steps to enter and a rail on 1 side. All aspects of ADLs prior to surgery. 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 No falls in the past 12 months. Equipment Owned/DME: [facility] Subjective: Pleasant and cooperative. Agreeable to PT consult. Denies headache, chest pain, and lightheadedness throughout. Looking forward to going home today. Objective: General Observation: IV in the right UE. Mepilex Ag over surgical incision. Cold pack on L hip. Mental Status: Alert and oriented x4 Pain: 1/10 in the left hip ROM: Right Upper Extremity: Shoulder Flexion WFL. Shoulder abduction WFL. Elbow flexion WFL. Wrist flexion WFL. Opening and closing of hand WFL. Left Upper Extremity: Shoulder Flexion WFL. Shoulder abduction WFL. Elbow flexion WFL. Wrist flexion WFL. Opening and closing of hand WFL. Right Lower Extremity: Hip flexion WFL. Hip abduction WFL. Knee flexion WFL. Ankle dorsiflexion WFL. Ankle plantarflexion WFL. Left Lower Extremity: Hip flexion WFL. Hip abduction WFL. Knee flexion WFL. Ankle dorsiflexion WFL. Ankle plantarflexion WFL. Strength: Right Upper Extremity: Shoulder flexors 5/5. Shoulder abductors 5/5. Elbow flexors 5/5. Elbow extensors 5/5. [employer]quis[employer] Consultant strong. Left Upper Extremity: Shoulder flexors 5/5. Shoulder abductors 5/5. Elbow flexors 5/5. Elbow extensors 5/5. M[employer] Consultant strong. Right Lower Extremity: Hip flexors 5/5. Hip abductors 5/5. Knee flexors 5/5. Knee extensors 5/5. Ankle dorsiflexors 5/5. Ankle plantarflexors 5/5. Left Lower Extremity:Hip flexors 4/5. Hip abductors 4/5. Knee flexors 5/5. Knee extensors 4/5. Ankle dorsiflexors 5/5. Ankle plantarflexors 5/5. Sensation: Intact as to pain and pressure on bilateral lower extremities. Bed Mobility/Transfers: Supine to sit independent Sit to stand independent Stand to sit independent Bed to chair independent Gait: Instructed on safe navigation on level surface for 400 feet +100 feet using front wheeled walker with WBAT on the left LE requiring supervision assist with step through gait pattern reporting 1/10 pain in the left hip. Trained on up-and-down six 4 inch steps and four 6 inch steps while holding onto 1 rail with supervision using step to gait pattern. Balance: Static Sitting: Normal Dynamic Sitting: Normal Static Standing: Good Dynamic Standing: Fair Assessment: Kailee demonstrates independence with all transfer activities using the front wheeled walker into supervision assist with level surface ambulation. She will have all adequate support at home. Pain level is very much controlled today. Front-wheeled walker has been secured and assembled to be taken home by patient today Goals: Goals X 3 days 1. Supine-Sit independent MET 2. Sit-Supine independent MET 3. Sit-Stand independent MET 4. Stand-Sit independent MET 5. Bed-Chair independent MET 6. Chair-Bed independent MET 7. Independent gait on level surface with use of front wheeled walker for at least 300 feet without report of pain nor dyspnea NOT MET 8. Independent stair negotiation while holding onto bilateral rails for at least 5 steps without report of pain nor dyspnea NOT MET 9. Independent with home exercise program MET 10. Good static and dynamic standing balance/tolerance NOT MET DISCHARGE RECOMMENDATIONS: Home when medically cleared by orthopedic surgeon. No equipment needs at this time. Outpatient PT in 2 weeks to facilitate return to premorbid independent level and to vocational activities. TREATMENT CODE/TIME: 55553 x 25 minutes beginning at 9:57 AM. Thank you for the opportunity to participate in the care of this patient. Tricia García PT, DPT, CLT [facility] [place], [place]
[2020-10-26 11:16] VITALS: BP 149/76; PULSE 75; RESP 16; TEMP 36.5; O2SAT 95
--- NOTE | 2020-10-26 14:56 | CHAPLAIN ---
I had a brief visit with Kailee, who had hip surgery yesterday. She is being discharged today. 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
== END 2020-10-26 12:44 | disposition home or self-care (01) ==
LOC: PDS 14:00 → MS 15:06
PROVIDERS: Admitting Provider Student in an Organized Health Care Education/Training Program; PCP Internal Medicine; Visit Provider Student in an Organized Health Care Education/Training Program
PROC: 0SRB04A Replacement of Left Hip Joint with Ceramic on Polyethylene Synthetic Substitute, Uncemented, Open Approach (ICD-10-PCS; CPT 27130; principal; 2020-10-25 12:15)
DX: M16.32 Unilateral osteoarthritis resulting from hip dysplasia, left hip (principal); M94.252 Chondromalacia, left hip; I10 Essential (primary) hypertension; K21.9 Gastro-esophageal reflux disease without esophagitis; M54.42 Lumbago with sciatica, left side; G47.33 Obstructive sleep apnea (adult) (pediatric)
CPT/HCPCS: 27130; 20985; 97162; 97530; NC; 73501; G0378; J0690; J1100; J1885; J2250; J2370; J2405

== ENCOUNTER 2020-11-11 08:40 | Outpatient (CLI) | payer OTHER, SELFPAY ==
--- NOTE | 2020-11-11 08:15 | DI.RAD_ITS ---
EXAM: XR HIP LT COMPLETE AP PELVIS CLINICAL HISTORY: 1st post op L VERONIKA. TECHNIQUE: 2D digital imaging was performed. COMPARISON: CR XR HIP LT COMPLETE AP PELVIS from 06/30/2020 XR HIP LT IN OR from 10/25/2020 FINDINGS: BONES: There are stable post operative changes present. No fracture or dislocation. JOINTS: The joint spaces are well maintained. No joint effusion is present. SOFT TISSUE: Normal. IMPRESSION: Stable postoperative changes. DATA REPOSITORY: RADIATION DOSE DELIVERED:
== END 2020-11-11 09:00 ==
PROVIDERS: PCP Internal Medicine; Referring Provider Internal Medicine; Visit Provider Student in an Organized Health Care Education/Training Program
DX: Z96.642 Presence of left artificial hip joint (principal)
CPT/HCPCS: 73502

== ENCOUNTER 2021-02-17 08:51 | Day surgery (SDC) | payer OTHER, SELFPAY ==
[2021-02-17 09:09] VITALS: BP 148/86; PULSE 76; RESP 16; TEMP 36.2; O2SAT 98
[2021-02-17] MEDS: Tropicam./Phenyleph. (1/2.5%) 5 ML BTL OD ×3 (09:15→09:25)
[2021-02-17] MEDS: Balanced Salt Soln.-PLUS 500 ML BAG (10:46)
[2021-02-17] MEDS: Lidocaine 2% Jelly 6 ML SYR (10:46)
[2021-02-17] MEDS: Duovisc Viscoelastic System EACH 1 EACH (10:47)
[2021-02-17] MEDS: Lidocaine 1% Pres-Free 5 ML VIAL (10:47)
[2021-02-17] MEDS: Povidone-Iodine Ophth 30 ML BTL (10:48)
[2021-02-17] MEDS: Tetracaine 0.5% 4 ML BTL OD (10:49)
--- NOTE | 2021-02-17 11:08 | W.PM.DSUDISC ---
Discharge Plan Disposition Patient Disposition: HOME Condition: Good Discharge Details Attending Provider: Shawn Espinosa Primary Care Provider: Goyo Dhillon [place] Meds and New Rx's Prescriptions: No Action duloxetine 30 mg capsule,delayed release(DR/EC) 30 mg PO DAILY Qty: 90 RF: 3 metoprolol succinate 25 mg tablet extended release 24 hr 25 mg PO DAILY Qty: 90 RF: 3 omeprazole 40 mg capsule,delayed release(DR/EC) 40 mg PO DAILY Qty: 90 RF: 3 clotrimazole-betamethasone 1-0.05 % cream 1 applic TP BID Qty: 45 RF: 1 acetaminophen 500 mg tablet 1,000 mg PO Q8H PRN (Reason: pain) Qty: 90 RF: 3 Discharge Instructions Stand Alone Forms: Post-op Topical Cataract, Press Ganey (DSU) Discharge Orders Discharge Orders: Discharge Order (Routine); Ordered 02/17/21 Ordered By: Shawn Espinosa DS: Diagnosis Discharge Diagnosis (1) Posterior subcapsular age-related cataract, right eye: Status: Resolved (2) Nuclear sclerotic cataract of right eye: Status: Resolved
--- NOTE | 2021-02-17 11:09 | W.PM.OP ---
Date of service: 02/17/21 Time of Service: 11:09 Operative Note Operative Note DATE OF PROCEDURE: 02/17/21 PRE-OP DIAGNOSIS: Nuclear/posterior subcapsular cataract, right eye Primary open-angle glaucoma, right eye, severe stage, status post trabeculectomy 2006 POST-OP DIAGNOSIS: same PROCEDURE: Cataract extraction using phacoemulsification with intraocular lens implant, right eye SURGEON: Shawn Espinosa ANESTHESIA TYPE: Local By Surgeon and MAC Refer to Anesthesia Record ESTIMATED BLOOD LOSS: 0 PATHOLOGY: none sent COMPLICATIONS: None Patient was transported to: same day Patient's condition: stable Implants: Demarcus [employer] Vision / [employer] Tecnis [id number] intraocular lens Indications: Progressive decreased vision due to cataract, right eye Procedure Description: CATARACT SURGERY OPERATIVE REPORT PREOPERATIVE DIAGNOSIS: Nuclear/posterior subcapsular cataract, right eye POSTOPERATIVE DIAGNOSIS: Same OPERATION: Cataract extraction using phacoemulsification with posterior chamber intraocular lens implant, right eye. IOL: IOL Gold Wheel Blocker And Polisher/Model: [employer] Vision / ANNA Tecnis ZCB00 IOL Power: + 20.5 diopters IOL Serial Number: [id number] Optic Diameter: 6.0mm Haptic/Overall Diameter: 13.0mm PHACO INFO: Simeon Centurion Vision System with OZil and Active Fluidics Cumulative Dispersed Energy (CDE): 4.5 seconds SURGEON: Shawn Espinosa MD, JOSE ANESTHESIA: Monitored Anesthesia Care (MAC), with local sub-tenon's anesthetic infiltration COMPLICATIONS: None SPECIMENS: None INDICATIONS FOR PROCEDURE: The patient is a 55-year-old lady with history of primary open-angle glaucoma, severe stage. She has undergone glaucoma surgery in both eyes in the form of trabeculectomy, both in 2006. She has previously undergone cataract surgery in the left eye in 2006. She has now developed a significant nuclear and posterior subcapsular cataract in the right eye and desires cataract surgery there and attempt to improve and maximize her vision. PROCEDURE: The correct surgical eye was identified and marked as the right eye and the pupil was dilated in the preoperative area using mydriatics and cycloplegics. The dilated pupil size was 7.0 mm. She elected to proceed without oral sedation. The patient was brought to the operating room where cardiopulmonary monitoring was instituted and surgical time-out was performed, confirming the correct operative eye and IOL power. Topical anesthesia was administered and ophthalmic povidone-iodine 5% was instilled into the conjunctival fornices. Lidocaine gel was applied to the cornea and the eyad-ocular area was prepped with Betadine 10% solution and draped in the usual sterile fashion for intraocular surgery, including an aperture drape. A Tegaderm transparent film dressing was cut in half and used to cover the lashes and lid margins. Care was taken to sequester the lashes and lid margins under the Tegaderm dressing. A lid speculum was placed between the lids of the operative eye and the Lelo-Jose operating microscope was maneuvered into position. Noam scissors were then used to make a conjunctival buttonhole approximately 6mm posterior to the limbus in the inferonasal quadrant. Blunt dissection was carried out to expose bare sclera, and a blunt-tipped sub-tenon?s anesthesia cannula was introduced and passed posteriorly along the globe where non-preserved plain lidocaine was injected into posterior sub-Tenon?s space. A sideport knife was used to make a paracentesis port inferiortemporally. Intraocular phenylephrine/lidocaine was injected into the anterior chamber. The anterior chamber was then filled with viscoelastic. A 2.4mm keratome knife was used to create a half-thickness groove at the limbus and then to construct a three-plane near-clear corneal tunnel extending 2.0mm into clear cornea in the superiortemporal position. . A flap was raised on the anterior capsule and capsulorhexis forceps were used to complete a continuous curvilinear capsulorhexis of 5.5 mm. Balanced salt solution was then used to perform cortical cleaving hydrodissection and nuclear hydrodelineation until the lens could be freely rotated within the capsular bag. The lens nucleus was then disassembled and removed within the capsular bag and iris plane using phacoemulsification. Residual cortical material was removed using the I/A handpiece. The posterior capsule was carefully polished to remove as much residual lens epithelial cells as safely possible. The capsular bag was then inflated and the anterior chamber deepened with viscoelastic. The lens implant described above was inserted into the capsular bag using the ANNA [place] Injector. A Kuglen hook was used to dial the IOL into position. Residual viscoelastic was then removed first from posterior to the IOL, then from the anterior chamber using the I/A handpiece. The lens implant was noted to center nicely within the capsular bag. The incisions were stromally hydrated, and the anterior chamber was reformed using BSS. Miostat was injected into the anterior chamber for postoperative pressure control. Then 0.5cc of moxifloxacin 1.0mg/ml were injected into the capsular bag and anterior chamber. The incisions were checked with a Weck spear and found to be secure. Several drops of ophthalmic povidone-iodine 5% were then applied to the eye followed by two drops of Imprimis combination prednisolone/moxifloxacin/nepafenac solution. The drapes were removed and a clear plastic protective eye shield was placed over the eye. The patient was then returned to Same Day Surgery in stable condition.
== END 2021-02-17 11:28 | disposition home or self-care (01) ==
PROVIDERS: PCP Internal Medicine; Visit Provider Ophthalmology
PROC: (CPT 66984; principal; 2021-02-17 11:30)
DX: H25.11 Age-related nuclear cataract, right eye (principal); H25.041 Posterior subcapsular polar age-related cataract, right eye; H40.1113 Primary open-angle glaucoma, right eye, severe stage; Z96.1 Presence of intraocular lens; Z98.42 Cataract extraction status, left eye
CPT/HCPCS: 66984; V2632

== ENCOUNTER 2021-07-17 11:26 | Day surgery (SDC) | payer OTHER, SELFPAY ==
[2021-07-17] VITALS (8 sets, daily range): BP systolic 97–145; BP diastolic 40–84; PULSE 73–100; RESP 11–20; TEMP 36.3–36.7; O2SAT 97–100; BMI 34.4
--- NOTE | 2021-07-17 06:56 | W.COLOREPORT ---
Date of service: 07/17/21 Time of Service: 15:01 Colonoscopy Report Date of procedure: 07/17/21 Pre-op diagnosis general: Diarrhea Post-op diagnosis procedure note: same Procedure: Colonoscopy with biopsies Surgeon: Brenda Ly Anesthesia Type: General:No Airway (ASA 3/ Radha Rodriges, ASHLEE) Estimated blood loss (mL): 3 Pathology: other (randome bx) Complications: None Disposition: same day Indications: Kailee is a pleasant [id number]-year-old female who was recently treated with antibiotics for bronchitis. She then developed right lower quadrant abdominal pain and diarrhea. She was seen in the emergency department and a CT scan and labs were done. Her labs were unremarkable and her CT scan did not show any acute findings aside for some lymphadenopathy. She was diagnosed with gastroenteritis and told to get onto a clear liquid diet. Pain has not improved and she was seen by her primary care physician who started her on 60 mg a day of prednisone. She is almost done with this and again she has seen no improvement. She has 4-5 bowel movements a day which are soft and mucousy. Differential includes infectious source so I will order some stool cultures, stool for ova and parasites and C. difficile. Diverticulitis although she did have a colonoscopy in 2019 which showed diverticula on the left side not the right side. And none were seen on the CT scan. Musculoskeletal total pain from the diarrhea. I have recommended that Kailee start Metamucil once or twice a day as well as a probiotic. Once I have her stool study results we will make another plan if these are negative. Stool cultures were negative. Patient continues to have diarrhea. Discussed proceeding with a colonoscopy with biopsies to rule out microscopic colitis Risks, benefits and complications have been reviewed. Complications include but are not limited to bleeding, pain, perforation, missed small lesion/polyp, sore throat, aspiration and adverse reaction to the medications. Questions were entertained and answered to their satisfaction and they wished to proceed. No guarantees were given or implied. Prep: Miralax/Dulcolax Procedure Start Time: 15:01 Procedure End Time: 15:28 Retraction Time: 17 minutes Findings: Normal appearing colon Diverticulosis Procedure Description: After informed consent was obtained the patient was taken to the procedure room and placed in a left decubitous position. Monitors were applied and a time out was done. The patients name, date of , procedure, allergies to medications and metal in their body was reviewed. The patient was then sedated. Once sedated and comfortable a rectal exam was done. External exam was normal. Internal exam revealed a normal sphincter tone and no palpable masses. The scope was then introduced and retro-flexed. Grade 1 internal hemorrhoids were noted. No polyps or masses were identified on retro-flexion. The scope was then advanced to the cecum without difficulty. The ileocecal vlave and appendiceal orifice were identified. The prep was adequate. The scope was then slowly retracted over 17 minutes back into the rectum. There were no polyps. There was moderate sigmoid diverticulosis noted. Randome bx of the ascending, transverse, descending, sigmoid colon and rectum were done to rule out diverticulosis. The scope was removed and the patient was woken up and taken back to Same day surgery in stable condition. The patient tolerated the procedure well and there were no immediate complications. Follow up: The patient should follow up in 10 years unless they develop changes in bowel habits or other new gastrointestinal complaints.
--- NOTE | 2021-07-17 06:57 | PDOC.DSDIS_ITS ---
Discharge Plan Disposition Patient Disposition: HOME Condition: Good Discharge Details Reason For Visit: colonoscopy Attending Provider: Brenda Ly Primary Care Provider: Goyo Dhillon Home Meds and New Rx's Prescriptions: New diphenoxylate-atropine [Lomotil] 2.5-0.025 mg tablet 1 tab PO Q6H PRNQty: 30 RF: 0 Continued duloxetine 30 mg capsule,delayed release(DR/EC) 30 mg PO DAILY Qty: 90 RF: 3 metoprolol succinate 25 mg tablet extended release 24 hr 25 mg PO DAILY Qty: 90 RF: 3 omeprazole 40 mg capsule,delayed release(DR/EC) 40 mg PO DAILY Qty: 90 RF: 3 Probiotic 3 billion cell capsule 3,000 mmu cells PO DAILY Qty: 30 RF: 0 clotrimazole-betamethasone 1-0.05 % cream 1 applic TP BID Qty: 45 RF: 1 prednisone 20 mg tablet 60 mg PO DAILY RF: 0 acetaminophen 500 mg tablet 1,000 mg PO Q8H PRN (Reason: pain) Qty: 90 RF: 3 Discontinued bisacodyl [Dulcolax (bisacodyl)] 5 mg tablet,delayed release (DR/EC) 5 mg PO ONCE Qty: 4 RF: 0 polyethylene glycol 3350 17 gram/dose powder 238 g PO ONCE Qty: 238 RF: 0 Discharge Instructions Additional Instructions: Findings: Diverticulosis Normal colon otherwise New Medication: Lomotil 1 tab 4 x a day for 48 hours or until diarrhea is c ontrolled then decrease to 3 x a day for 48 hours, then decrease to daily. Hold if you get constipated Please call if you develop: fevers >101.5 Nausea or Vomiting Abdominal pain that is not transient Rectal bleeding that is more then a tbsp A hard abdomen and inability to pass gas DAY SURGERY UNIT POST ENDOSCOPY INSTRUCTIONS Instructions for everyone who is given Anesthesia: For your safety, please do the following for the next 24 Hours: a. Do not drive or operate dangerous equipment b. Do not drink alcohol beverages or use any recreational drugs for the first 24 hours or while taking pain medications. The medications in your body may have a reaction that can be dangerous. c. Do not make any important decisions or sign any important papers 1. Generally there are no restrictions on your activity after a day or so has gone by, but you may feel a bit fatigued for a few days. 2. After you arrive home you may have a light meal and return to a normal diet as you can tolerate it without feeling sick to your stomach. 3. After surgery, you may feel pain or discomfort. This should be only transient, but if it persists please contact your doctor. 4. If there are any questions regarding the findings of your procedure, please feel free to contact your doctor. 6. If you are unable to contact your doctor with a problem, contact the hospital at [phone]. 7. Continue all your regular medications unless directed otherwise. I understand the above instructions and have no questions. Signature of Patient or Responsible Adult Escort Date/Time Name of Responsible Adult Escort Signature of Nurse Date/Time Activity:: Activity as Tolerated Diet:: As Tolerated Discharge Orders Discharge Orders: Discharge Order (Routine); Ordered 07/17/21 Ordered By: Brenda Ly
[2021-07-17] MEDS: Lactated Ringers 1,000 ML 80 ML IV (12:31)
[2021-07-17 13:12] LABS: Source Nasal/Nares
--- NOTE | 2021-07-17 13:30 | W.ANESPRE ---
General Info Date of Service Date Performed: 07/17/21 Height: 5 ft 3 in Weight: 88.3 kg Body Mass Index (BMI): 34.4 Surgical Procedure: Operation Date: 07/17/21 12:20 Proposed Procedures Side Surgeon p Colonoscopy Brenda Ly MD Actual Procedures Side Surgeon p Colonoscopy Not Applicable Brenda Ly MD Pre-Op Diagnosis Post-Op Diagnosis DIARRHEA Meds Allergies and Home Medications Allergies Allergy/AdvReac Type Severity Reaction Status Date / Time cephalexin [From Keflex] Allergy Unknown unknown Verified 07/17/21 12:08 hydrocodone AdvReac Intermediate NAUSEA Verified 07/17/21 12:08 codeine AdvReac Unknown NAUSEA Verified 07/17/21 12:08 Home Medication Medication Instructions Recorded clotrimazole-betamethasone 1 1 applic TP BID #45 gm 08/01/18 %-0.05 % topical cream duloxetine 30 mg capsule,delayed 30 mg PO DAILY #90 cap 08/14/19 release metoprolol succinate 25 mg 25 mg PO DAILY #90 tab 08/14/19 tablet,extended release 24 hr omeprazole 40 mg capsule,delayed 40 mg PO DAILY #90 cap 08/14/19 release acetaminophen 1,000 mg PO Q8H PRN #90 tab 10/26/20 prednisone 20 mg tablet 60 mg PO DAILY tab 06/29/21 lactobacillus combination no.4 3 3,000 mmu cells PO DAILY #30 cap 06/30/21 billion cell capsule bisacodyl 5 mg tablet,delayed 5 mg PO ONCE #4 tab 07/10/21 release polyethylene glycol 3350 17 238 g PO ONCE #238 g 07/10/21 gram/dose oral powder Current Visit Medications: Current Medications Generic Name Dose Route Start Last Admin Trade Name Freq PRN Reason Stop Dose Admin Hyoscyamine Sulfate 0.125 mg 07/17/21 06:57 Hyoscyamine 0.125 Mg Sl/Oral/Chew SL DIRECTED PRN Ringer's Solution 1,000 mls @ 80 mls/hr 07/17/21 06:00 07/17/21 12:31 IV 07/17/21 23:59 80 mls/hr INFUSION HERNANDO Administration IV Miscellaneous Supplies 1 each 07/17/21 06:00 Iv Access IV 07/17/21 23:59 DIRECTED HERNANDO Ondansetron HCl 4 mg 07/17/21 06:57 Ondansetron 4 Mg/2 Ml Vial IVP Q4H PRN PRN Nausea / Vomiting Sodium Chloride 0 ml 07/17/21 06:00 Normal Saline Flush 10 Ml Syr IV 07/17/21 23:59 PRN PRN Sodium Chloride 0 ml 07/17/21 06:00 Normal Saline 10 Ml Vial IJ 07/17/21 23:59 DIRECTED PRN Sterile Water 0 ml 07/17/21 06:00 Water,Injection,Sterile 10 Ml Vial IJ 07/17/21 23:59 DIRECTED PRN PFSH Active Problems Active Problems: Problem Status Onset Code Diarrhea R19.7 Epigastric pain R10.13 Encounter for screening laboratory testing for COVID-19 virus Z20.822 Posterior subcapsular age-related cataract, right eye H25.041 Nuclear sclerotic cataract of right eye H25.11 History of left hip replacement 10/25/20 Z96.642 At risk for aspiration Z91.89 Lumbar disc displacement without myelopathy M51.26 Essential hypertension 09/28/13 I10 Gastroesophageal reflux 05/07/14 K21.9 Lumbago with sciatica 05/07/14 M54.40 Encounter for screening colonoscopy Z12.11 At high risk for aspiration Z91.89 Status post ovarian cystectomy Z98.890, Z87.42 Status post cholecystectomy Z90.49 Cough R05 Hypertension I10 Anesthesia complication T41.45XA Lipoma of left lower extremity D17.24 Left knee pain M25.562 Pes anserine bursitis M70.50 Osteoarthritis of left hip joint due to dysplasia M16.32 Colorectal polyp detected on colonoscopy ~04/13/19 K63.5 Diverticulosis ~04/13/19 K57.90 S/P colonoscopy ~04/13/19 Z98.890 Yeast vaginitis B37.3 FERNANDEZ (dyspnea on exertion) R06.09 Diverticulitis K57.92 Lumbar disc herniation 02/26/17 M51.26 Trochanteric bursitis, left hip M70.62 Chronic pain 04/03/17 G89.29 BMI 36.0-36.9,adult 03/22/16 Z68.36 Sacroiliac joint dysfunction of left side M53.3 Left lumbar radiculitis M54.16 Lumbosacral spondylosis without myelopathy M47.817 Foraminal stenosis of lumbar region M99.83 Medical History Medical History At risk for aspiration History of aspiration will under sedation. Likely slow gastric emptying. BMI 36.0-36.9,adult (03/22/16) Chronic pain (04/03/17) Colorectal polyp detected on colonoscopy (~04/13/19) Diverticulitis Diverticulosis (~04/13/19) trial of daily metamucil to prevent diverticulitis FERNANDEZ (dyspnea on exertion) Pt. states she denies this Essential hypertension Fatigue Foraminal stenosis of lumbar region GERD (gastroesophageal reflux disease) Hx of scoliosis Left lumbar radiculitis Lumbago with sciatica Lumbar disc herniation (02/26/17) L5-S1 with foraminal stenosis Lumbosacral spondylosis without myelopathy JANNA (obstructive sleep apnea) Osteoarthritis of left hip joint due to dysplasia Sacroiliac joint dysfunction of left side Trochanteric bursitis, left hip Yeast vaginitis Surgical History Surgical History Cholecystectomy Cystectomy, Mini Lap Ovarian EXCISION, CALCANEAL SPUR 11/15/17-DR. PASTRANA (R) Excision, Lipoma (09/25/16) x2 History of left hip replacement (10/25/20) S/P colonoscopy (~04/13/19) Tobacco Smoking/Tobacco Use Status: Never Passive smoking exposure: Yes Second hand exposure: Yes Alcohol Alcohol Intake: current Alcohol intake frequency: holidays/special occasions only Substance Use Substance use: Never Substance use type: does not use Vital Signs and Lab Results Vital Signs Most Recent Vital Signs in EMR: Most Recent Vital Signs Temp Pulse Resp BP Pulse Ox 36.7 C 100 H 18 145/84 H 97 07/17/21 11:55 07/17/21 11:55 07/17/21 11:55 07/17/21 11:55 07/17/21 11:55 Lab Results Blood Type / Crossmatch: No Data to Display Complete Blood Count: No Data to Display Complete Metabolic Panel: No Data to Display Liver Function Panel: No Data to Display Coagulation Panel: No Data to Display Cardiac Panel: No Data to Display Arterial Blood Gas: No Data to Display Venous Blood Gas: No Data to Display Pancreas Panel: No Data to Display Thyroid Panel: No Data to Display Infectious Disease: Coronavirus 2019 Source Nasal/Nares 07/17/21 13:08 07/17/21 Blood Cultures: No Data to Display Toxicology Panel: No Data to Display Imaging and Studies Imaging and Studies Stress Test Summary: Impressions: Normal perfusion by Tc99m Sestamibi Imaging. Summary: 1. Myocardial perfusion imaging: No myocardial perfusion defects noted. 2. The calculated left ventricular ejection fraction after stress: 80%. No left ventricular regional motion abnormality. 10/06/18 Echocardiogram Summary: Summary: 1. Left ventricle: The cavity size was normal. Wall thickness was normal. Systolic function was normal. The estimated ejection fraction was 60-65%. Wall motion was normal; there were no regional wall motion abnormalities. Diastolic parameters were normal. 2. Right ventricle: The cavity size was normal. Wall thickness was normal. Systolic function was normal. The tricuspid jet envelope definition is inadequate for estimation of RV systolic pressure. There were no indirect findings (abnormal RV volume or geometry, altered pulmonary flow velocity profile, or leftward septal displacement) which would suggest moderate or severe pulmonary hypertension. 09/17/18 Anesthesia Assessment and Plan Anesthesia History Personal History: No History of Anesthesia Complications Family History: No Family History of Anesthesia Complications Exercise Tolerance Exercise Tolerance: Metabolic Equivalents>4 Pertinent Negatives Pertinent Negatives: No Symptoms of GERD (Well controlled with med), No Major Cardiovascular Symptoms or Complaints, No Major Pulmonary Symptoms or Complaints (Bronchitis resoved no residual cough) and No History of CVA/TIA Cardiac & Pulmonary Exam Cardiac Exam: Normal S1/S2 Heart Sounds Pulmonary Exam: Clear Bilateral Breath Sounds Airway Exam Known Difficult Airway: No Mallampati Class: 2 Mouth Opening: Normal (> 3cm) Thyromental Distance: Greater than 3 cm Neck Range of Motion: Full ROM Neck Circumference: Normal Teeth Condition: Normal Dentition ASA Classification ASA Score: ASA 2 Emergency Case?: No NPO Status NPO Status: NPO Clears >2 hours, Solids >8 hours Anesthesia Plan Resuscitation Status: Full Code Anesthesia Technique: General Anesthesia Airway Planned: Endotracheal Tube Monitors Used: Standard Monitors
[2021-07-17 14:32] LABS: COVID-19 PCR Negative (Negative)
--- NOTE | 2021-07-17 15:15 | BOWEL_PTH ---
PATIENT: Kailee Anaya LOC: [facility] U#:[id number] AGE/SX: 55/F ROOM: RE07/17/[address]: Brenda Ly MD : 1965 BED: DIS: 07/17/2021 SPEC #: [id number] RECD: 07/17/21 17:30 STATUS: ADDY REMikhail #: [id number] DEBRA: 07/17/21 15:[address]: Brenda Ly DEPT: Surgical Specimen RECD BY: Dali Haynes ENTERED: 07/17/21 17:31 SP TYPE: Bowel OTHR DR: Goyo Dhillon Tissues: 1 - BIOPSY BOWEL 2 - BIOPSY BOWEL 3 - BIOPSY BOWEL 4 - BIOPSY BOWEL Procedures: GROSS AND MICRO LEVEL 4 Comments: [id number]
--- NOTE | 2021-07-17 17:20 | W.ANESPOSTOP ---
Postoperative Evaluation Date, Time and Location Date Performed: 07/17/21 Time Performed: 17:20 Patient Location: Day Surgery Unit Vital Signs Most Recent Imported Vital Signs: Most Recent Vital Signs Temp Pulse Resp BP Pulse Ox 36.3 C L 76 16 124/79 97 07/17/21 16:53 07/17/21 16:53 07/17/21 16:53 07/17/21 16:53 07/17/21 16:53 Pain Score Most Recent Pain Score: Most Recent Pain Score Pain Level 0 07/17/21 16:53 Assessment Mental Status: Awake (Alert & Oriented to Patient Baseline) Airway and Respiratory Function: Patent airway with normal (patient baseline) respiratory exam Cardiovascular Function: Hemodynamically Stable Hydration Status: Adequately Hydrated Nausea & Vomiting: No Nausea or Vomiting Pain: Pt. Denies Any Pain Peripheral Nerve Block: Patient did not receive a nerve block
== END 2021-07-17 17:22 | disposition home or self-care (01) ==
LOC: SUR 11:26
PROVIDERS: PCP Internal Medicine; Visit Provider Surgery
PROC: 0DJD8ZZ Inspection of Lower Intestinal Tract, Via Natural or Artificial Opening Endoscopic (ICD-10-PCS; CPT 45378; principal; 2021-07-17 12:15)
DX: K52.9 Noninfective gastroenteritis and colitis, unspecified (principal)
CPT/HCPCS: 87635; 88305; J1885; J2001; J2250; J2405; J2704

== ENCOUNTER 2024-08-31 16:13 | Outpatient (CLI) | payer OTHER, SELFPAY ==
--- NOTE | 2024-08-31 15:15 | DI.RAD_ITS ---
Exam(s) XR HIP LT COMPLETE AP PELVIS EXAM: XR HIP LT COMPLETE AP PELVIS CLINICAL HISTORY: painful left VERONIKA. TECHNIQUE: 2D digital imaging was performed. Two views. COMPARISON: CR XR HIP LT COMPLETE AP PELVIS from 11/11/2020 FINDINGS: BONES: No acute fracture is present. No bony destructive lesion is seen. JOINTS: Stable appearance of left total hip prosthesis. No dislocation present. The SI joints and pu bic symphysis are intact. No significant degenerative changes in the right hip. SOFT TISSUE: Normal. IMPRESSION: Stable appearance of left hip prosthesis. DATA REPOSITORY: RADIATION DOSE DELIVERED:
== END 2024-08-31 16:14 | disposition home or self-care (01) ==
LOC: DIORS 16:14
PROVIDERS: PCP Internal Medicine; Visit Provider Physician Assistant
DX: Z96.642 Presence of left artificial hip joint (principal); Z47.1 Aftercare following joint replacement surgery
CPT/HCPCS: 73502

== ENCOUNTER 2024-09-30 01:59 | Outpatient (CLI) | payer OTHER, SELFPAY ==
--- NOTE | 2024-09-30 07:00 | DI.CT_ITS ---
Exam(s) CT LOWER EXTREMITY LT WO EXAM: CT LOWER EXTREMITY LT WO CLINICAL HISTORY: LEFT HIP PAIN,OA LT HIP JOINT DUE TO DYSPLASIA,M16.32. TECHNIQUE: Imaging Protocol: Axial computed tomography images with coronal and sagittal reformatted images were created and reviewed. COMPARISON: CT PELVIC/LOWER ABD WITH CON(P) from 08/16/2009 CR XR HIP LT COMPLETE AP PELVIS from 11/11/2020 CR XR HIP LT COMPLETE AP PELVIS from 08/31/2024 FINDINGS: Bones: The patient has a left total hip arthroplasty. There are no lucency seen about the orthopedi c hardware to suggest loosening or infection. No fracture is identified. Bony alignment is satisfac tory. No cellulitic or osteomyelitic changes are identified. The bones are normally mineralized. N o lytic or sclerotic lesions are identified. Soft Tissues: Note is made of diverticulosis in the colon. The soft tissues are unremarkable. IMPRESSION: 1. Stable appearance of the left total hip arthroplasty. No suspicious lucencies are seen around the hardware. 2. No fracture is identified. RADIATION DOSE DELIVERED: 408.12mGy.cm Total DLP 408.12mGy.cm Total DLP DATA REPOSITORY: All CT scans at this facility are submitted to the National Radiology Data Registry (NRDR) Dose Index Registry (DIR) with the [employer] ([employer]). RADIATION OPTIMIZATION: All CT scans at this facility use at least one of these dose optimization te chniques: automated exposure control; mA and/or kV adjustment per patient size (includes targeted exa ms where dose is matched to clinical indication); or iterative reconstruction.
--- NOTE | 2024-09-30 07:00 | DI.NM_ITS ---
Exam(s) NM BONE SCAN 3 PHASE EXAM: NM BONE SCAN 3 PHASE CLINICAL HISTORY: LEFT HIP PAIN,OA LT HIP JOINT TO DYSPLASIA,M16.31. TECHNIQUE: Injected Dose: 22.5 mCi Tc-99m MDP COMPARISON: CR XR KNEE LT 2V AP,LAT from 05/17/2020 CR XR HIP LT COMPLETE AP PELVIS from 11/11/2020 CR XR HIP LT COMPLETE AP PELVIS from 08/31/[address] LOWER EXTREMITY LT WO from 09/30/2024 FINDINGS: Perfusion: Symmetric. Blood Pool: Symmetric. Delayed: Minimally increased activity seen at the region of the left greater trochanter. No findings to suggest loosening. Increased activity is noted in the left knee, greater laterally consistent wi th degenerative changes. Scoliosis and mild degenerative uptake is noted in the spine. IMPRESSION: 1. No significantly increased activity in the left hip. 2. Increased activity in the lateral left knee consistent with degenerative changes. DATA REPOSITORY:
== END 2024-09-30 02:19 ==
LOC: DI 02:00
PROVIDERS: PCP Internal Medicine; Visit Provider Student in an Organized Health Care Education/Training Program
DX: M16.32 Unilateral osteoarthritis resulting from hip dysplasia, left hip (principal)
CPT/HCPCS: 73700; 78315